=== PATIENT | male | born 1945 | race Two or more races ===

== ENCOUNTER 2016-05-25 12:02 | Inpatient (IN) | payer OTHER ==
[~2016-05-25] VITALS: Ht 160 cm; Wt 82.3 kg
[~2016-05-25 12:02] MED LIST: Atorvastatin Calcium PO; ERGO1CAP23 PO; LABE200T18 PO; Nifedipine PO
[2016-05-26] VITALS (7 sets, daily range): BP systolic 150–199; BP diastolic 66–98
[2016-05-26 04:07] LABS: Basophils # (auto) 0 uL; Basophils % (auto) 0.4 % (0.0-2.0); DEFINITIVE VIEW TRANSMISSION; Eosinophils # (auto) 0.3 uL; Eosinophils % (auto) 2.9 % (0.0-7.0); Hematocrit 22.8 % (41.0-53.0); Hemoglobin 7.5 g/dL (13.5-17.5); Lymphocytes # (auto) 0.8 uL; Lymphocytes % (auto) 8.7 % (10.0-50.0); Mean Corpuscular Hemoglobin 27.3 pg (28.0-32.0); Mean Corpuscular Hgb Conc. 32.8 g/dL (32.0-36.0); Mean Platelet Volume 7.5 fL (7.4-10.4); Monocytes # (auto) 0.6 uL; Monocytes % (auto) 6.1 % (0.0-12.0); Neutrophils # (auto) 7.7 uL; Neutrophils % (auto) 81.9 % (37.0-80.0); Platelet Count (auto) 172 10^3/uL (140-450); Red Cell Distribution Width 17.5 % (11.6-16.0); White Blood Cell 9.4 10^3/uL (4.4-10.8)
[2016-05-26 04:22] LABS: INR 1.14 (0.9-1.15); Partial Thromboplastin Time 28.6 sec (22.64-33.71); Prothrombin Time 11.7 sec (9.37-12.3)
[2016-05-26 04:43] LABS: Albumin 2.8 g/dL (3.4-5.0); BUN/Creatinine Ratio 6.6; Bilirubin, Total 0.7 mg/dL (0.2-1.0); Calcium 7.8 mg/dL (8.5-10.1); Total Protein 6.7 g/dL (6.4-8.2)
[2016-05-26 04:47] LABS: Potassium 5.9 mmol/L (3.5-5.1)
[2016-05-26] MEDS ORDERED: CALCIUM GLUC 4.65 MEQ/10ML 4.65 MEQ in SODIUM CHL 0.9% 50 ML IV ONE (06:30)
[2016-05-26] MEDS ORDERED: DEXTROSE (50%) 50ML SYRG IV ONE (06:30)
[2016-05-26] MEDS ORDERED: SODIUM BICARBONATE 8.4 % INJ 50ML VIAL IV ONE (06:30)
[2016-05-26] MEDS ORDERED: InsuLIN REG 1unit/0.01ml Soln (100units/ml) IV ONE (06:30)
[2016-05-26] MEDS ORDERED: SODIUM POLYSTYRENE SULF 15GM/60ML SUSP PO ONE (06:30)
[2016-05-26] MEDS ORDERED: CALCIUM GLUC 4.65 MEQ/10ML IV ONE (06:47)
[2016-05-26] MEDS ORDERED: LORazepam 0.5 MG TAB PO PRN (08:15)
[2016-05-26] MEDS ORDERED: PROMETHAZINE HCL 25 MG/ML 1ML IV PRN (08:15)
[2016-05-26] MEDS ORDERED: MORPHINE SULF INJ 2 MG/ML SYRINGE 1ML IV PRN ×2 (08:15)
[2016-05-26] MEDS ORDERED: ONDANSETRON HCL 4 MG/2 ML VIAL IV PRN (08:15)
[2016-05-26] MEDS ORDERED: LACTULOSE 20Gm/30ML SOLN PO PRN (08:15)
[2016-05-26] MEDS ORDERED: HYDROcodone-ACET 5/325MG TAB PO PRN (08:15)
[2016-05-26] MEDS ORDERED: DEXTROSE (50%) 50ML SYRG IV PRN (08:15)
[2016-05-26] MEDS ORDERED: NITROGLYCERIN 0.4 MG SL TAB SL PRN (08:15)
[2016-05-26] MEDS ORDERED: TEMAZEPAM 15 MG CAP PO PRN (08:15)
[2016-05-26] MEDS ORDERED: ACETAMINOPHEN 500 MG TAB PO PRN (08:15)
[2016-05-26 10:00] LABS: Urine Bilirubin Negative (Negative); Urine Color Yellow (Yellow); Urine Ketone Negative (Negative); Urine Nitrite Negative (Negative); Urine RBC 9 /hpf (0 - 3); Urine Urobilinogen Normal (Negative); Urine pH 7.5 (5.0-8.0)
[2016-05-26] MEDS ORDERED: FAMOTIDINE 20 MG TAB PO SCH (10:00)
[2016-05-26] MEDS: ENOXAPARIN SOD 30 MG/0.3 ML SYRINGE SC SCH ×2 (10:00→16:05)
[2016-05-26 10:09] LABS: Urine Glucose 1+ mg/dL (Normal)
[2016-05-26 10:10] LABS: Urine Blood 1+ /uL (Negative)
[2016-05-26] MEDS: FUROSEMIDE 40 MG/4 ML VIAL IV SCH (10:39)
[2016-05-26] MEDS: CARVEDILOL 3.125 MG TAB PO SCH ×2 (10:40→22:26)
[2016-05-26] MEDS: FAMOTIDINE 20 MG TAB PO SCH (10:40)
[2016-05-26] MEDS: InsuLIN REG 1unit/0.01ml Soln (100units/ml) SC SCH ×3 (10:55→22:00)
[2016-05-26] MEDS: ACCU-CHEK COMFORT CURVE STRIP VI SCH ×2 (10:56→17:19)
[2016-05-26] MEDS: LABETALOL HCL 5 MG/ML 4ML SYRINGE IV PRN ×3 (11:32→17:20)
[2016-05-26] MEDS ORDERED: MINOXIDIL 10 MG TAB PO ONE (15:30)
[2016-05-26] MEDS ORDERED: NIFEdipine ER 30 MG TAB PO ONE (15:30)
[2016-05-26 19:10] LABS: BUN/Creatinine Ratio 6.5; Calcium 8.3 mg/dL (8.5-10.1); Potassium 5.4 mmol/L (3.5-5.1)
[2016-05-26] MEDS: MINOXIDIL 10 MG TAB PO SCH (22:27)
[2016-05-26] MEDS: LOSARTAN POTASSIUM 50 MG TAB PO SCH (22:27)
[2016-05-27] MEDS: ACCU-CHEK COMFORT CURVE STRIP VI SCH ×5 (01:08→21:58)
[2016-05-27 05:20] VITALS: BP 117/53
[2016-05-27] MEDS: InsuLIN REG 1unit/0.01ml Soln (100units/ml) SC SCH ×4 (05:44→22:00)
[2016-05-27] MEDS ORDERED: ENAL2.5T PO (05:53)
[2016-05-27] MEDS ORDERED: NIFE90TA30 PO (05:53)
[2016-05-27] MEDS ORDERED: LOSA100T27 PO (05:53)
[2016-05-27 06:16] LABS: Basophils # (auto) 0 uL; Basophils % (auto) 0.2 % (0.0-2.0); DEFINITIVE VIEW TRANSMISSION; Eosinophils # (auto) 0.2 uL; Eosinophils % (auto) 2.4 % (0.0-7.0); Hemoglobin 7.2 g/dL (13.5-17.5); Lymphocytes # (auto) 1.2 uL; Lymphocytes % (auto) 14.4 % (10.0-50.0); Mean Corpuscular Hemoglobin 27.1 pg (28.0-32.0); Mean Corpuscular Hgb Conc. 32.5 g/dL (32.0-36.0); Mean Corpuscular Volume 83.3 fL (80.0-100.0); Mean Platelet Volume 8.2 fL (7.4-10.4); Monocytes # (auto) 0.5 uL; Monocytes % (auto) 6.1 % (0.0-12.0); Neutrophils # (auto) 6.2 uL; Neutrophils % (auto) 76.9 % (37.0-80.0); Platelet Count (auto) 176 10^3/uL (140-450); Red Cell Distribution Width 17.6 % (11.6-16.0); White Blood Cell 8.1 10^3/uL (4.4-10.8)
[2016-05-27 06:40] LABS: Albumin 2.6 g/dL (3.4-5.0); Calcium 8.2 mg/dL (8.5-10.1); Potassium 5.3 mmol/L (3.5-5.1)
[2016-05-27 06:48] LABS: BUN/Creatinine Ratio 6.7; Bilirubin, Total 0.5 mg/dL (0.2-1.0)
[2016-05-27 08:30] VITALS: BP 136/68
[2016-05-27] MEDS: FAMOTIDINE 20 MG TAB PO SCH (09:48)
[2016-05-27] MEDS: ENOXAPARIN SOD 30 MG/0.3 ML SYRINGE SC SCH (09:48)
[2016-05-27] MEDS: FUROSEMIDE 40 MG/4 ML VIAL IV SCH (09:48)
[2016-05-27] MEDS: MINOXIDIL 10 MG TAB PO SCH ×2 (09:48→21:58)
[2016-05-27] MEDS: CARVEDILOL 3.125 MG TAB PO SCH ×2 (09:48→21:57)
[2016-05-27] MEDS: NIFEdipine ER 30 MG TAB PO SCH (09:49)
[2016-05-27 12:39] VITALS: BP 134/74
[2016-05-27 13:39] VITALS: BP 147/68
[2016-05-27 17:00] VITALS: BP 117/54
[2016-05-27] MEDS: LOSARTAN POTASSIUM 50 MG TAB PO SCH (21:57)
[2016-05-27 22:00] VITALS: BP 104/48
[2016-05-28] VITALS (12 sets, daily range): BP systolic 111–137; BP diastolic 56–70
[2016-05-28] MEDS: ACCU-CHEK COMFORT CURVE STRIP VI SCH ×4 (06:18→23:43)
[2016-05-28] MEDS: InsuLIN REG 1unit/0.01ml Soln (100units/ml) SC SCH ×4 (06:18→23:21)
[2016-05-28 06:36] LABS: Basophils # (auto) 0 uL; Basophils % (auto) 0.4 % (0.0-2.0); DEFINITIVE VIEW TRANSMISSION; Eosinophils # (auto) 0.3 uL; Eosinophils % (auto) 4.6 % (0.0-7.0); Hematocrit 20.2 % (41.0-53.0); Lymphocytes # (auto) 1.3 uL; Lymphocytes % (auto) 19.7 % (10.0-50.0); Mean Corpuscular Hgb Conc. 33.6 g/dL (32.0-36.0); Mean Corpuscular Volume 83.2 fL (80.0-100.0); Monocytes # (auto) 0.5 uL; Monocytes % (auto) 8.1 % (0.0-12.0); Neutrophils # (auto) 4.3 uL; Neutrophils % (auto) 67.2 % (37.0-80.0); Platelet Count (auto) 150 10^3/uL (140-450); Red Cell Distribution Width 18.3 % (11.6-16.0); White Blood Cell 6.4 10^3/uL (4.4-10.8)
[2016-05-28 06:44] LABS: BUN/Creatinine Ratio 6.3; Potassium 5.2 mmol/L (3.5-5.1)
[2016-05-28 06:45] LABS: Hemoglobin 6.8 g/dL (13.5-17.5)
[2016-05-28 06:47] LABS: INR 1.17 (0.9-1.15)
[2016-05-28 08:25] LABS: Ovalocytes FEW; Platelet Estimate Adequate
[2016-05-28 08:26] LABS: Schistocytes FEW
[2016-05-28] MEDS: MINOXIDIL 10 MG TAB PO SCH ×2 (09:40→23:01)
[2016-05-28] MEDS: FAMOTIDINE 20 MG TAB PO SCH (09:40)
[2016-05-28] MEDS: CARVEDILOL 3.125 MG TAB PO SCH ×2 (09:41→23:01)
[2016-05-28] MEDS: NIFEdipine ER 30 MG TAB PO SCH (09:41)
[2016-05-28] MEDS: FUROSEMIDE 40 MG/4 ML VIAL IV SCH (09:41)
[2016-05-28] MEDS: ENOXAPARIN SOD 30 MG/0.3 ML SYRINGE SC SCH (09:42)
[2016-05-28] MEDS ORDERED: PANTOPRAZOLE SODIUM 40 MG/10 ML VIAL IV ONE (15:30)
[2016-05-28] MEDS: LOSARTAN POTASSIUM 50 MG TAB PO SCH (22:00)
[2016-05-29] VITALS (7 sets, daily range): BP systolic 125–151; BP diastolic 65–79
[2016-05-29 00:46] LABS: Hematocrit 29.1 % (41.0-53.0); Hemoglobin 9.6 g/dL (13.5-17.5)
[2016-05-29 06:15] LABS: Hematocrit 27.3 % (41.0-53.0)
[2016-05-29] MEDS: InsuLIN REG 1unit/0.01ml Soln (100units/ml) SC SCH ×4 (06:34→22:00)
[2016-05-29] MEDS: ACCU-CHEK COMFORT CURVE STRIP VI SCH ×3 (06:34→17:18)
[2016-05-29] MEDS: PANTOPRAZOLE SODIUM 40 MG/10 ML VIAL IV SCH (09:31)
[2016-05-29] MEDS: FUROSEMIDE 40 MG/4 ML VIAL IV SCH (09:31)
[2016-05-29] MEDS: NIFEdipine ER 30 MG TAB PO SCH (09:32)
[2016-05-29] MEDS: MINOXIDIL 10 MG TAB PO SCH ×2 (09:32→23:36)
[2016-05-29] MEDS: CARVEDILOL 3.125 MG TAB PO SCH ×2 (09:32→23:37)
[2016-05-29] MEDS: LOSARTAN POTASSIUM 50 MG TAB PO SCH (22:00)
[2016-05-30] MEDS: ACCU-CHEK COMFORT CURVE STRIP VI SCH ×3 (00:58→12:05)
[2016-05-30 05:05] VITALS: BP 112/51
[2016-05-30 06:17] LABS: Basophils # (auto) 0 uL; Basophils % (auto) 0.3 % (0.0-2.0); Eosinophils # (auto) 0.3 uL; Eosinophils % (auto) 5.4 % (0.0-7.0); Hematocrit 28.3 % (41.0-53.0); Hemoglobin 9.3 g/dL (13.5-17.5); Lymphocytes # (auto) 1.3 uL; Lymphocytes % (auto) 20.1 % (10.0-50.0); Mean Corpuscular Hemoglobin 28.1 pg (28.0-32.0); Mean Corpuscular Hgb Conc. 32.7 g/dL (32.0-36.0); Mean Corpuscular Volume 85.9 fL (80.0-100.0); Mean Platelet Volume 8.4 fL (7.4-10.4); Monocytes # (auto) 0.7 uL; Monocytes % (auto) 10.9 % (0.0-12.0); Neutrophils # (auto) 4.1 uL; Neutrophils % (auto) 63.3 % (37.0-80.0); Platelet Count (auto) 159 10^3/uL (140-450); Red Cell Distribution Width 17.6 % (11.6-16.0); White Blood Cell 6.4 10^3/uL (4.4-10.8)
[2016-05-30 06:57] LABS: Albumin 2.8 g/dL (3.4-5.0); BUN/Creatinine Ratio 7.2; Bilirubin, Total 0.5 mg/dL (0.2-1.0); Calcium 8.7 mg/dL (8.5-10.1); Potassium 5.3 mmol/L (3.5-5.1); Total Protein 6.4 g/dL (6.4-8.2)
[2016-05-30] MEDS: InsuLIN REG 1unit/0.01ml Soln (100units/ml) SC SCH ×2 (07:00→12:29)
[2016-05-30 09:00] VITALS: BP 137/64
[2016-05-30] MEDS: MINOXIDIL 10 MG TAB PO SCH (09:58)
[2016-05-30] MEDS: PANTOPRAZOLE SODIUM 40 MG/10 ML VIAL IV SCH (09:59)
[2016-05-30] MEDS: CARVEDILOL 3.125 MG TAB PO SCH (10:00)
[2016-05-30] MEDS: NIFEdipine ER 30 MG TAB PO SCH (10:01)
[2016-05-30 12:56] VITALS: BP 140/71
[2016-05-30] MEDS ORDERED: LOSA100T27 PO (14:46)
[2016-05-30 15:57] VITALS: BP 137/64
[2016-05-30 17:00] VITALS: BP 135/65
== END 2016-05-30 17:20 | disposition home or self-care (01) | DRG 314 ==
LOC: ER 12:24 → TELE 12:25 → TELE-WESTW 05-26 09:58 → WEST WING 05-30 01:40
PROVIDERS: ADMIT Internal Medicine; ATTEND Internal Medicine Pulmonary Disease
PROC: 30233N1 Transfusion of Nonautologous Red Blood Cells into Peripheral Vein, Percutaneous Approach (ICD-10-PCS; 2016-05-25)
PROC: 5A1D00Z (ICD-10-PCS; principal; 2016-05-27)
DX: T82.41XA Breakdown (mechanical) of vascular dialysis catheter, initial encounter (principal); N18.6 End stage renal disease; J81.1 Chronic pulmonary edema; I13.2 Hypertensive heart and chronic kidney disease with heart failure and with stage 5 chronic kidney disease, or end stage renal disease; E11.22 Type 2 diabetes mellitus with diabetic chronic kidney disease; E87.5 Hyperkalemia; D63.1 Anemia in chronic kidney disease; I50.9 Heart failure, unspecified; Y83.8 Other surgical procedures as the cause of abnormal reaction of the patient, or of later complication, without mention of misadventure at the time of the procedure; Y71.2 Prosthetic and other implants, materials and accessory cardiovascular devices associated with adverse incidents; Z99.2 Dependence on renal dialysis; Z83.3 Family history of diabetes mellitus; Y92.89 Other specified places as the place of occurrence of the external cause; Z90.49 Acquired absence of other specified parts of digestive tract; Z98.890 Other specified postprocedural states
CPT/HCPCS: 36415; 71010; 80048; 80053; 81001; 82962; 83036; 83735; 84132; 84443; 85014; 85018; 85025; 85045; 85610; 85652; 85730; 86141; 86850; 86900; 86901; 86920; 87081; 87340; 87493; 90935; 93005; 93306; 96365; 96375; C9113; J1815; J3490

== ENCOUNTER 2017-05-06 13:35 | Emergency (ER) | payer OTHER ==
[~2017-05-06] VITALS: Ht 162.6 cm; Wt 73.9 kg
[~2017-05-06 13:35] MED LIST changes: +LOSA100T27 PO; +NIFE90TA30 PO
[2017-05-06 13:55] VITALS: BP 155/65
== END 2017-05-06 23:55 | disposition left against medical advice (07) ==
LOC: ER 13:42
DX: R51 Headache (principal); W19.XXXA Unspecified fall, initial encounter; Y93.89 Activity, other specified; Y92.89 Other specified places as the place of occurrence of the external cause; Y99.8 Other external cause status; Z53.21 Procedure and treatment not carried out due to patient leaving prior to being seen by health care provider
CPT/HCPCS: 70450; 93005

== ENCOUNTER 2018-10-15 21:09 | Inpatient (IN) | payer OTHER ==
[~2018-10-15] VITALS: Ht 160 cm; Wt 74.8 kg
[~2018-10-15 21:09] MED LIST changes: +ASP81EC PO; +CALC667T2 PO; +LAMO100T44 PO; +LOSA-49 PO; -LOSA100T27 PO; +METO-517 PO; +NIFE60TA59 PO; +PANT40TA2 PO; +SERT-275 PO
[2018-10-15] MEDS: NICARDIPINE 25MG/250ML BAG KIT 250 ML IV SCH (22:12)
[2018-10-15 22:17] LABS: Basophils # (auto) 0 uL; Basophils % (auto) 0.7 % (0.0-2.0); Eosinophils # (auto) 0.2 uL; Hematocrit 31.1 % (41.0-53.0); Hemoglobin 10.5 g/dL (13.5-17.5); Lymphocytes # (auto) 0.5 uL; Lymphocytes % (auto) 12.3 % (10.0-50.0); Mean Corpuscular Hemoglobin 30.8 pg (28.0-32.0); Mean Corpuscular Hgb Conc. 33.7 g/dL (32.0-36.0); Mean Corpuscular Volume 91.2 fL (80.0-100.0); Monocytes # (auto) 0.3 uL; Neutrophils # (auto) 2.8 uL; Platelet Count (auto) 111 10^3/uL (140-450); Red Blood Cells 3.41 10^6/uL (4.5-5.90); Red Cell Distribution Width 16.6 % (11.8-14.3); White Blood Cell 3.8 10^3/uL (4.4-10.8)
[2018-10-15 22:22] LABS: INR 1.09 (0.9-1.15); Partial Thromboplastin Time 26.7 sec (23.64-32.05); Prothrombin Time 11.7 sec (9.06-12.60)
[2018-10-15 22:26] LABS: Calcium 8.6 mg/dL (8.5-10.1); Chloride 100 mmol/L (98-107); Potassium 4.6 mmol/L (3.5-5.1); Sodium 137 mmol/L (136-145)
[2018-10-15 22:30] LABS: Albumin 3.6 g/dL (3.4-5.0); Anion Gap 10 (5-15); BUN/Creatinine Ratio 5.4; Blood Urea Nitrogen 32 mg/dL (7-18); Carbon Dioxide 27 mmol/L (21-32); GFR African American 12 mL/min; GFR Non-African American 10 mL/min; Glucose 118 mg/dL (74-106); Magnesium 2.1 mg/dL (1.6-2.6)
[2018-10-15 22:35] LABS: Alanine Aminotransferase 41 U/L (16-61); Alkaline Phosphatase 279 U/L (45-117); Aspartate Aminotransferase 50 U/L (15-37); Bilirubin, Total 1.6 mg/dL (0.2-1.0); Total Protein 8.2 g/dL (6.4-8.2)
[2018-10-15] MEDS ORDERED: HYDROcodone-ACET 7.5/325MG TAB PO ONE (23:15)
[2018-10-16] MEDS ORDERED: ONDANSETRON HCL 4 MG/2 ML VIAL IV PRN (00:30)
[2018-10-16] MEDS ORDERED: ACETAMINOPHEN 325 MG TAB PO PRN (00:30)
[2018-10-16] MEDS ORDERED: HYDROcodone-ACET 5/325MG TAB PO PRN (00:30)
[2018-10-16] MEDS ORDERED: DEXTROSE (50%) 50ML SYRG IV PRN (02:30)
[2018-10-16 02:32] LABS: Basophils # (auto) 0.1 uL; Basophils % (auto) 1.5 % (0.0-2.0); Eosinophils # (auto) 0.1 uL; Eosinophils % (auto) 2.9 % (0.0-7.0); Hematocrit 28.8 % (41.0-53.0); Hemoglobin 9.6 g/dL (13.5-17.5); Lymphocytes # (auto) 0.4 uL; Lymphocytes % (auto) 9.1 % (10.0-50.0); Mean Corpuscular Hemoglobin 30.6 pg (28.0-32.0); Mean Corpuscular Hgb Conc. 33.4 g/dL (32.0-36.0); Mean Corpuscular Volume 91.4 fL (80.0-100.0); Monocytes # (auto) 0.4 uL; Monocytes % (auto) 8.8 % (0.0-12.0); Neutrophils # (auto) 3.7 uL; Neutrophils % (auto) 77.7 % (37.0-80.0); Platelet Count (auto) 107 10^3/uL (140-450); Red Blood Cells 3.14 10^6/uL (4.5-5.90); Red Cell Distribution Width 16.8 % (11.8-14.3); White Blood Cell 4.7 10^3/uL (4.4-10.8)
[2018-10-16] MEDS: NICARDIPINE 25MG/250ML BAG KIT 250 ML IV SCH ×3 (03:11→13:23)
[2018-10-16] MEDS ORDERED: PANTOPRAZOLE 40 MG TAB PO SCH (06:00)
[2018-10-16 06:54] LABS: Basophils # (auto) 0 uL; Basophils % (auto) 1.1 % (0.0-2.0); Eosinophils # (auto) 0.2 uL; Hematocrit 27.3 % (41.0-53.0); Hemoglobin 9.1 g/dL (13.5-17.5); Lymphocytes # (auto) 0.6 uL; Lymphocytes % (auto) 15.1 % (10.0-50.0); Mean Corpuscular Hemoglobin 30.8 pg (28.0-32.0); Mean Corpuscular Hgb Conc. 33.5 g/dL (32.0-36.0); Monocytes # (auto) 0.4 uL; Monocytes % (auto) 11.1 % (0.0-12.0); Neutrophils # (auto) 2.7 uL; Neutrophils % (auto) 66.7 % (37.0-80.0); Platelet Count (auto) 101 10^3/uL (140-450); Red Blood Cells 2.97 10^6/uL (4.5-5.90); Red Cell Distribution Width 16.8 % (11.8-14.3)
[2018-10-16 07:03] LABS: Calcium 8.4 mg/dL (8.5-10.1); Potassium 4.5 mmol/L (3.5-5.1)
[2018-10-16 07:05] LABS: BUN/Creatinine Ratio 5.6
[2018-10-16] MEDS: ACCU-CHEK COMFORT CURVE STRIP VI SCH ×3 (07:33→18:07)
[2018-10-16] MEDS: InsuLIN REG 1unit/0.01ml Soln (100units/ml) SC SCH ×3 (07:33→18:07)
[2018-10-16] MEDS ORDERED: LOSARTAN POTASSIUM 50 MG TAB PO SCH (10:00)
[2018-10-16] MEDS ORDERED: NIFEdipine ER 30 MG TAB PO SCH (10:00)
[2018-10-16] MEDS ORDERED: SERTRALINE HCL 50 MG TAB PO SCH (10:00)
[2018-10-16] MEDS ORDERED: LABETALOL HCL 200 MG TAB PO SCH (10:00)
[2018-10-16] MEDS ORDERED: lamoTRIgine 25 MG TAB PO SCH (10:00)
[2018-10-16] MEDS ORDERED: ASPirin-EC 81 mg tab PO SCH (10:00)
[2018-10-16 18:13] VITALS: BP 111/59
[2018-10-16] MEDS ORDERED: ATORVASTATIN 20 MG TAB PO SCH (22:00)
== END 2018-10-16 20:30 | disposition home or self-care (01) | DRG 314 ==
LOC: ER 21:10 → OVERFLOW 10-16 00:27
PROVIDERS: ADMIT Nurse Practitioner Family; ATTEND Internal Medicine
DX: T82.838A Hemorrhage due to vascular prosthetic devices, implants and grafts, initial encounter (principal); N18.6 End stage renal disease; I50.43 Acute on chronic combined systolic (congestive) and diastolic (congestive) heart failure; I13.2 Hypertensive heart and chronic kidney disease with heart failure and with stage 5 chronic kidney disease, or end stage renal disease; I16.9 Hypertensive crisis, unspecified; R64 Cachexia; D63.1 Anemia in chronic kidney disease; D69.6 Thrombocytopenia, unspecified; E11.22 Type 2 diabetes mellitus with diabetic chronic kidney disease; E66.9 Obesity, unspecified; Y83.8 Other surgical procedures as the cause of abnormal reaction of the patient, or of later complication, without mention of misadventure at the time of the procedure; I70.0 Atherosclerosis of aorta; Z68.29 Body mass index [BMI] 29.0-29.9, adult; Z79.899 Other long term (current) drug therapy; Z82.49 Family history of ischemic heart disease and other diseases of the circulatory system; Z83.3 Family history of diabetes mellitus; Z99.2 Dependence on renal dialysis; Z88.6 Allergy status to analgesic agent; Z90.49 Acquired absence of other specified parts of digestive tract; Y92.89 Other specified places as the place of occurrence of the external cause
CPT/HCPCS: 36415; 71045; 80048; 80053; 82962; 83735; 83880; 84484; 85025; 85610; 85730; 86850; 86900; 86901; 93005; 93971; G0378; J1815; J2405

== ENCOUNTER 2020-09-27 16:09 | Inpatient (IN) | payer OTHER ==
[~2020-09-27] VITALS: Ht 157.5 cm; Wt 77.0 kg
[~2020-09-27 16:09] MED LIST changes: -ASP81EC PO; +ASPI-394 PO; +CALC10TA PO; -CALC667T2 PO; -LABE200T18 PO; +LABE200T7 PO; +LOSA-39 PO; -LOSA-49 PO; +NIFE1TAB30 PO; -NIFE60TA59 PO; -NIFE90TA30 PO; +NIFE90TA49 PO; -SERT-275 PO; +SERT25TA14 PO
[2020-09-27] MEDS ORDERED: SODIUM CHLORIDE 0.9% 1,000 ML IVB ONE (17:00)
[2020-09-27] MEDS ORDERED: ONDANSETRON HCL 4 MG/2 ML VIAL IV ONE (17:00)
[2020-09-27 17:29] LABS: Basophils # (auto) 0 10 ^3/uL (0-0.2); Basophils % (auto) 0.6 % (0.0-2.0); Eosinophils # (auto) 0.2 10 ^3/uL (0-0.8); Eosinophils % (auto) 4.2 % (0.0-7.0); Hematocrit 34.6 % (41.0-53.0); Hemoglobin 11.5 g/dL (13.5-17.5); Lymphocytes # (auto) 0.8 10 ^3/uL (0.4-5.4); Lymphocytes % (auto) 15.4 % (10.0-50.0); Mean Corpuscular Hemoglobin 31.5 pg (28.0-32.0); Mean Corpuscular Hgb Conc. 33.3 g/dL (32.0-36.0); Mean Corpuscular Volume 94.6 fL (80.0-100.0); Monocytes # (auto) 0.4 10 ^3/uL (0-1.3); Monocytes % (auto) 7.8 % (0.0-12.0); Neutrophils # (auto) 3.7 10 ^3/uL (1.6-8.6); Nucleated Red Blood Cells % 0.1 %; Platelet Count (auto) 90 10^3/uL (140-450); Red Blood Cells 3.66 10^6/uL (4.5-5.90); Red Cell Distribution Width 14.1 % (11.8-14.3); White Blood Cell 5.1 10^3/uL (4.4-10.8)
[2020-09-27] MEDS ORDERED: CALCIUM GLUC 1,000mg/50ml-NS 50 ML IV ONE ×2 (17:34→17:45)
[2020-09-27 17:41] LABS: Alanine Aminotransferase 44 U/L (16-61); Amylase 56 U/L (25-115); Anion Gap 12 (5-15); Aspartate Aminotransferase 21 U/L (15-37); Blood Urea Nitrogen 65 mg/dL (7-18); Calcium 8.8 mg/dL (8.5-10.1); Carbon Dioxide 23 mmol/L (21-32); Chloride 98 mmol/L (98-107); Glucose 193 mg/dL (74-106); Lipase 84 U/L (73-393); Sodium 133 mmol/L (136-145)
[2020-09-27] MEDS ORDERED: SODIUM BICARBONATE 8.4% INJ 50ML SYRINGE IV ONE (17:45)
[2020-09-27] MEDS ORDERED: DEXTROSE (50%) 50ML SYRG IV ONE (17:45)
[2020-09-27] MEDS ORDERED: ALBUTEROL SULF 2.5 MG/0.5ML(0.5%) NEB SOLN NEB ONE (17:45)
[2020-09-27] MEDS ORDERED: InsuLIN REG 1unit/0.01ml Soln (100units/ml) IV ONE (17:45)
[2020-09-27 17:47] LABS: Alkaline Phosphatase 274 U/L (45-117); BUN/Creatinine Ratio 6.5; Bilirubin, Total 0.8 mg/dL (0.2-1.0); GFR African American 7 mL/min; GFR Non-African American 5 mL/min; Total Protein 8.5 g/dL (6.4-8.2)
[2020-09-27 17:56] LABS: INR 1.03 (0.9-1.15)
[2020-09-27] MEDS ORDERED: SODIUM ZIRCONIUM CYCL 10 GM PAK PO ONE ×2 (18:00→18:15)
[2020-09-27 18:07] LABS: Potassium 8.7 mmol/L (3.5-5.1)
[2020-09-27] MEDS ORDERED: MORPHINE SULF INJ 2 MG/ML SYRINGE 1ML IV PRN ×2 (18:30→21:00)
[2020-09-27] MEDS ORDERED: FUROSEMIDE 20 MG/2 ML VIAL IV ONE (18:30)
[2020-09-27] MEDS ORDERED: DEXTROSE (50%) 50ML SYRG IV PRN (18:30)
[2020-09-27] MEDS ORDERED: ACETAMINOPHEN 500 MG TAB PO PRN (18:30)
[2020-09-27] MEDS ORDERED: NITROGLYCERIN 0.4 MG SL TAB SL PRN (18:30)
[2020-09-27] MEDS ORDERED: ONDANSETRON HCL 4 MG/2 ML VIAL IV PRN (18:30)
[2020-09-27] MEDS ORDERED: LABETALOL HCL 5 MG/ML 4ML SYRINGE IV PRN ×3 (18:45)
[2020-09-27] MEDS ORDERED: ERGOCALCIFEROL 50,000 UNIT(1.25MG) CAP PO SCH (18:45)
[2020-09-27] MEDS ORDERED: LABETALOL HCL 200 MG TAB PO ONE (18:45)
[2020-09-27] MEDS ORDERED: LABETALOL HCL 5 MG/ML 4ML SYRINGE IV ONE (18:45)
[2020-09-27] MEDS ORDERED: SODIUM CHL 0.9% 1000 ML BAG XX ONE (21:00)
[2020-09-27] MEDS: HYDROcodone-ACET 5/325MG TAB PO PRN (21:22)
[2020-09-27] MEDS: ACCU-CHEK COMFORT CURVE STRIP VI SCH (22:00)
[2020-09-27] MEDS: InsuLIN REG 1unit/0.01ml Soln (100units/ml) SC SCH (22:00)
[2020-09-27] MEDS ORDERED: FAMOTIDINE (10MG/ML) 2ML VL IV SCH (22:00)
[2020-09-27] MEDS: ATORVASTATIN 20 MG TAB PO SCH (22:51)
[2020-09-27] MEDS: lamoTRIgine 100 MG TAB PO SCH (22:51)
[2020-09-27] MEDS: LABETALOL HCL 200 MG TAB PO SCH (22:52)
[2020-09-27] MEDS: NIFEdipine ER 30 MG TAB PO SCH (22:53)
[2020-09-28 02:36] VITALS: BP 152/65
[2020-09-28 05:00] VITALS: BP 123/57
[2020-09-28 05:08] LABS: Basophils # (auto) 0 10 ^3/uL (0-0.2); Basophils % (auto) 0.3 % (0.0-2.0); Eosinophils # (auto) 0.1 10 ^3/uL (0-0.8); Eosinophils % (auto) 2.3 % (0.0-7.0); Hematocrit 30.3 % (41.0-53.0); Hemoglobin 10.3 g/dL (13.5-17.5); Lymphocytes # (auto) 0.6 10 ^3/uL (0.4-5.4); Lymphocytes % (auto) 11.9 % (10.0-50.0); Mean Corpuscular Hemoglobin 32.1 pg (28.0-32.0); Mean Corpuscular Hgb Conc. 33.9 g/dL (32.0-36.0); Mean Corpuscular Volume 94.7 fL (80.0-100.0); Monocytes # (auto) 0.4 10 ^3/uL (0-1.3); Monocytes % (auto) 7.5 % (0.0-12.0); Neutrophils # (auto) 4.2 10 ^3/uL (1.6-8.6); Nucleated Red Blood Cells % 0.1 %; Platelet Count (auto) 79 10^3/uL (140-450); Red Cell Distribution Width 13.8 % (11.8-14.3); White Blood Cell 5.3 10^3/uL (4.4-10.8)
[2020-09-28 05:40] LABS: Potassium 5.4 mmol/L (3.5-5.1)
[2020-09-28 05:50] LABS: Albumin 3.4 g/dL (3.4-5.0); BUN/Creatinine Ratio 4.8; Bilirubin, Total 0.7 mg/dL (0.2-1.0); Calcium 8.1 mg/dL (8.5-10.1); Total Protein 7.2 g/dL (6.4-8.2)
[2020-09-28] MEDS: InsuLIN REG 1unit/0.01ml Soln (100units/ml) SC SCH ×4 (06:50→21:48)
[2020-09-28] MEDS: ACCU-CHEK COMFORT CURVE STRIP VI SCH ×4 (06:50→21:48)
[2020-09-28 08:00] VITALS: BP 106/61
[2020-09-28] MEDS: CALCIUM ACETATE 667 MG CAP PO SCH ×3 (08:21→18:05)
[2020-09-28] MEDS: METOCLOPRAMIDE HCL 10 MG TAB PO SCH ×3 (08:21→18:06)
[2020-09-28] MEDS: lamoTRIgine 100 MG TAB PO SCH ×2 (08:22→21:47)
[2020-09-28] MEDS: SERTRALINE HCL 50 MG TAB PO SCH (08:22)
[2020-09-28] MEDS: LABETALOL HCL 200 MG TAB PO SCH ×2 (08:23→21:50)
[2020-09-28] MEDS: HYDROcodone-ACET 5/325MG TAB PO PRN (09:15)
[2020-09-28] MEDS ORDERED: PANTOPRAZOLE 40 MG/10 ML VIAL INJ IV ONE (10:30)
[2020-09-28] MEDS ORDERED: KETOROLAC TROMETH 30 MG/ML 1ML VIAL IV ONE (10:45)
[2020-09-28 12:00] VITALS: BP 95/49
[2020-09-28 12:24] LABS: Hepatitis A Ab IgM Negative; Hepatitis B Core IgM Negative; Hepatitis B Surface Antigen Negative (Negative); Hepatitis C Antibody Negative (Negative)
[2020-09-28] MEDS ORDERED: SODIUM BICARBONATE 8.4% INJ 50ML SYRINGE IV ONE (13:27)
[2020-09-28] MEDS ORDERED: DEXTROSE (50%) 50ML SYRG IV ONE (13:27)
[2020-09-28 21:44] VITALS: BP 107/51
[2020-09-28] MEDS: ATORVASTATIN 20 MG TAB PO SCH (21:48)
[2020-09-28] MEDS: NIFEdipine ER 30 MG TAB PO SCH (22:00)
[2020-09-29 05:02] VITALS: BP 124/55
[2020-09-29 06:12] LABS: Basophils # (auto) 0 10 ^3/uL (0-0.2); Basophils % (auto) 0.3 % (0.0-2.0); Eosinophils # (auto) 0.1 10 ^3/uL (0-0.8); Eosinophils % (auto) 1.5 % (0.0-7.0); Hematocrit 33.1 % (41.0-53.0); Hemoglobin 11.1 g/dL (13.5-17.5); Lymphocytes # (auto) 0.8 10 ^3/uL (0.4-5.4); Lymphocytes % (auto) 12.8 % (10.0-50.0); Mean Corpuscular Hemoglobin 32.1 pg (28.0-32.0); Mean Corpuscular Hgb Conc. 33.5 g/dL (32.0-36.0); Mean Corpuscular Volume 95.8 fL (80.0-100.0); Monocytes # (auto) 0.8 10 ^3/uL (0-1.3); Monocytes % (auto) 13.1 % (0.0-12.0); Neutrophils # (auto) 4.4 10 ^3/uL (1.6-8.6); Neutrophils % (auto) 72.3 % (37.0-80.0); Nucleated Red Blood Cells % 0.1 %; Platelet Count (auto) 75 10^3/uL (140-450); Red Blood Cells 3.46 10^6/uL (4.5-5.90)
[2020-09-29 06:26] LABS: BUN/Creatinine Ratio 6.7; Calcium 8.4 mg/dL (8.5-10.1)
[2020-09-29 06:30] LABS: Potassium 5.8 mmol/L (3.5-5.1)
[2020-09-29] MEDS: ACCU-CHEK COMFORT CURVE STRIP VI SCH ×4 (06:30→21:57)
[2020-09-29] MEDS: InsuLIN REG 1unit/0.01ml Soln (100units/ml) SC SCH ×4 (06:32→22:00)
[2020-09-29] MEDS ORDERED: SODIUM ZIRCONIUM CYCL 10 GM PAK PO ONE (07:15)
[2020-09-29 08:00] VITALS: BP 120/84
[2020-09-29] MEDS: METOCLOPRAMIDE HCL 10 MG TAB PO SCH ×3 (08:00→18:00)
[2020-09-29] MEDS: CALCIUM ACETATE 667 MG CAP PO SCH ×3 (08:00→18:00)
[2020-09-29 08:51] VITALS: BP 115/47
[2020-09-29] MEDS ORDERED: PANTOPRAZOLE 40 MG/10 ML VIAL INJ IV SCH (10:00)
[2020-09-29] MEDS: SERTRALINE HCL 50 MG TAB PO SCH (10:00)
[2020-09-29] MEDS: lamoTRIgine 100 MG TAB PO SCH ×2 (10:00→21:57)
[2020-09-29] MEDS: LABETALOL HCL 200 MG TAB PO SCH ×2 (11:50→22:01)
[2020-09-29 13:00] VITALS: BP 118/47
[2020-09-29 17:00] VITALS: BP 151/74
[2020-09-29] MEDS ORDERED: EPOETIN ALFA-EPBX 10,000 UNIT/1ML VIAL SC ONE (21:00)
[2020-09-29] MEDS: ATORVASTATIN 20 MG TAB PO SCH (21:57)
[2020-09-29 22:00] VITALS: BP 158/73
[2020-09-29] MEDS: NIFEdipine ER 30 MG TAB PO SCH (23:08)
[2020-09-30 05:00] VITALS: BP 142/59
[2020-09-30] MEDS: InsuLIN REG 1unit/0.01ml Soln (100units/ml) SC SCH ×2 (06:21→11:30)
[2020-09-30] MEDS: ACCU-CHEK COMFORT CURVE STRIP VI SCH ×2 (06:22→11:34)
[2020-09-30 07:27] LABS: Calcium 7.9 mg/dL (8.5-10.1); Potassium 5.1 mmol/L (3.5-5.1)
[2020-09-30 07:29] LABS: BUN/Creatinine Ratio 6.8
[2020-09-30 09:00] VITALS: BP 121/60
[2020-09-30] MEDS: SERTRALINE HCL 50 MG TAB PO SCH (09:28)
[2020-09-30] MEDS: CALCIUM ACETATE 667 MG CAP PO SCH ×2 (09:28→12:32)
[2020-09-30] MEDS: LABETALOL HCL 200 MG TAB PO SCH (09:29)
[2020-09-30] MEDS: METOCLOPRAMIDE HCL 10 MG TAB PO SCH ×2 (09:30→12:32)
[2020-09-30] MEDS: lamoTRIgine 100 MG TAB PO SCH (09:30)
[2020-09-30] MEDS ORDERED: PANTOPRAZOLE 40 MG TAB PO SCH (10:00)
[2020-09-30 13:58] VITALS: BP 121/60
== END 2020-09-30 15:15 | disposition home or self-care (01) | DRG 73 ==
LOC: ER 16:09 → TELE 18:16 → CENTRAL 09-28 02:04 → TELE-CENTR 09-28 02:07
PROVIDERS: ADMIT Internal Medicine; ATTEND Internal Medicine
PROC: 5A1D70Z Performance of Urinary Filtration, Intermittent, Less than 6 Hours Per Day (ICD-10-PCS; principal; 2020-09-27)
PROC: 5A1D70Z Performance of Urinary Filtration, Intermittent, Less than 6 Hours Per Day (ICD-10-PCS; 2020-09-29)
DX: E11.43 Type 2 diabetes mellitus with diabetic autonomic (poly)neuropathy (principal); N18.6 End stage renal disease; J96.00 Acute respiratory failure, unspecified whether with hypoxia or hypercapnia; I50.41 Acute combined systolic (congestive) and diastolic (congestive) heart failure; I13.2 Hypertensive heart and chronic kidney disease with heart failure and with stage 5 chronic kidney disease, or end stage renal disease; E87.5 Hyperkalemia; K70.30 Alcoholic cirrhosis of liver without ascites; Z20.822 Contact with and (suspected) exposure to COVID-19; K31.84 Gastroparesis; D69.6 Thrombocytopenia, unspecified; E66.9 Obesity, unspecified; I16.0 Hypertensive urgency; H40.9 Unspecified glaucoma; D63.1 Anemia in chronic kidney disease; F10.10 Alcohol abuse, uncomplicated; E11.22 Type 2 diabetes mellitus with diabetic chronic kidney disease; E78.5 Hyperlipidemia, unspecified; H54.62 Unqualified visual loss, left eye, normal vision right eye; Z79.4 Long term (current) use of insulin; Z91.15 Patient's noncompliance with renal dialysis; Z99.2 Dependence on renal dialysis; Z82.49 Family history of ischemic heart disease and other diseases of the circulatory system; Z83.3 Family history of diabetes mellitus; Z90.49 Acquired absence of other specified parts of digestive tract; Z88.6 Allergy status to analgesic agent; Z68.31 Body mass index [BMI] 31.0-31.9, adult
CPT/HCPCS: 36415; 71045; 74176; 80048; 80053; 80074; 82150; 82962; 83036; 83690; 83735; 84132; 84484; 85025; 85610; 85730; 87081; 87426; 90935; 93005; 94640; 96365; 96375; 99291; C9113; G0378; J1642; J1815; J1885; J2405; J3490

== ENCOUNTER 2021-04-18 10:28 | Inpatient (IN) | payer OTHER ==
[~2021-04-18] VITALS: Ht 162.6 cm; Wt 75.3 kg
[2021-04-18] MEDS ORDERED: ACETAMINOPHEN 325 MG TAB PO ONE (11:00)
[2021-04-18] MEDS ORDERED: methylPREDNISolone SOD SUCC 125 MG/2 ML VL IV ONE (11:00)
[2021-04-18 11:47] LABS: Basophils # (auto) 0 10 ^3/uL (0-0.2); Basophils % (auto) 0.2 % (0.0-2.0); Eosinophils # (auto) 0 10 ^3/uL (0-0.8); Eosinophils % (auto) 0.1 % (0.0-7.0); Hematocrit 29.6 % (41.0-53.0); Lymphocytes # (auto) 0.7 10 ^3/uL (0.4-5.4); Lymphocytes % (auto) 4.9 % (10.0-50.0); Mean Corpuscular Hemoglobin 31.1 pg (28.0-32.0); Mean Corpuscular Hgb Conc. 33.8 g/dL (32.0-36.0); Mean Corpuscular Volume 92.2 fL (80.0-100.0); Monocytes # (auto) 1.2 10 ^3/uL (0-1.3); Monocytes % (auto) 8.9 % (0.0-12.0); Neutrophils # (auto) 11.3 10 ^3/uL (1.6-8.6); Neutrophils % (auto) 85.9 % (37.0-80.0); Red Blood Cells 3.21 10^6/uL (4.5-5.90); Red Cell Distribution Width 13.1 % (11.8-14.3); White Blood Cell 13.2 10^3/uL (4.4-10.8)
[2021-04-18 12:28] LABS: Albumin 2.7 g/dL (3.4-5.0); Calcium 8.4 mg/dL (8.5-10.1)
[2021-04-18 12:31] LABS: BUN/Creatinine Ratio 6.4; Total Protein 7.7 g/dL (6.4-8.2)
[2021-04-18] MEDS ORDERED: levoFLOXacin 250MG 50 ML IV ONE (15:15)
[2021-04-18] MEDS ORDERED: VANCOMYCIN 1GM/250ML 250 ML IV ONE (17:00)
[2021-04-18] MEDS ORDERED: MORPHINE SULFATE INJECTION 2 MG/ML SYRG IV PRN (18:00)
[2021-04-18] MEDS ORDERED: NITROGLYCERIN 0.4 MG SL TAB SL PRN (18:00)
[2021-04-18] MEDS ORDERED: SODIUM CHLORIDE 0.9% 1,000 ML IV SCH (18:00)
[2021-04-18] MEDS ORDERED: DEXTROSE (50%) 50ML SYRG IV PRN (18:00)
[2021-04-18] MEDS ORDERED: ACETAMINOPHEN 500 MG TAB PO PRN (18:00)
[2021-04-18] MEDS ORDERED: LACTULOSE 20Gm/30ML SOLN PO PRN ×2 (18:00)
[2021-04-18] MEDS ORDERED: cefTRIAXone 1GM/50ML D5W 50 ML IV ONE (18:00)
[2021-04-18] MEDS ORDERED: ENOXAPARIN SOD 40 MG/0.4 ML SYRINGE SC SCH (18:30)
[2021-04-18] MEDS ORDERED: CLINDAMYCIN 900MG IV 50 ML IV ONE (20:00)
[2021-04-18 22:00] VITALS: BP 184/85
[2021-04-18] MEDS: ATORVASTATIN 20 MG TAB PO SCH (22:13)
[2021-04-18] MEDS: ACCU-CHEK COMFORT CURVE STRIP VI SCH (22:14)
[2021-04-18] MEDS: METOPROLOL TARTRATE 25 MG TAB PO SCH (22:28)
[2021-04-18] MEDS: InsuLIN REG 1unit/0.01ml Soln (100units/ml) SC SCH (22:41)
[2021-04-18] MEDS ORDERED: CALC667C PO (23:25)
[2021-04-18] MEDS ORDERED: AMLO-496 PO (23:25)
[2021-04-18] MEDS ORDERED: CARV12.544 PO (23:25)
[2021-04-18] MEDS ORDERED: LISI40TA11 PO (23:25)
[2021-04-18] MEDS ORDERED: HYDR25TA5 PO (23:25)
[2021-04-18 23:57] VITALS: BP 184/85
[2021-04-19 05:00] VITALS: BP 148/74
[2021-04-19] MEDS ORDERED: CLINDAMYCIN 600MG IV 50 ML IV SCH (06:00)
[2021-04-19] MEDS: InsuLIN REG 1unit/0.01ml Soln (100units/ml) SC SCH ×4 (06:42→22:58)
[2021-04-19] MEDS: ACCU-CHEK COMFORT CURVE STRIP VI SCH ×4 (06:43→22:00)
[2021-04-19 06:57] LABS: Basophils # (auto) 0 10 ^3/uL (0-0.2); Basophils % (auto) 0.1 % (0.0-2.0); Eosinophils # (auto) 0 10 ^3/uL (0-0.8); Hematocrit 30.6 % (41.0-53.0); Hemoglobin 10.4 g/dL (13.5-17.5); Lymphocytes # (auto) 0.5 10 ^3/uL (0.4-5.4); Mean Corpuscular Hemoglobin 31.5 pg (28.0-32.0); Mean Corpuscular Hgb Conc. 33.9 g/dL (32.0-36.0); Mean Corpuscular Volume 92.8 fL (80.0-100.0); Monocytes # (auto) 0.9 10 ^3/uL (0-1.3); Monocytes % (auto) 5.7 % (0.0-12.0); Neutrophils # (auto) 15.2 10 ^3/uL (1.6-8.6); Neutrophils % (auto) 91.2 % (37.0-80.0); Red Cell Distribution Width 13.4 % (11.8-14.3); White Blood Cell 16.7 10^3/uL (4.4-10.8)
[2021-04-19 07:39] LABS: Albumin 2.6 g/dL (3.4-5.0); BUN/Creatinine Ratio 7.4; Bilirubin, Total 1.1 mg/dL (0.2-1.0); Calcium 8.4 mg/dL (8.5-10.1); Total Protein 7.1 g/dL (6.4-8.2)
[2021-04-19 08:53] VITALS: BP 157/74
[2021-04-19 08:53] LABS: Potassium 5.9 mmol/L (3.5-5.1)
[2021-04-19] MEDS: METOPROLOL TARTRATE 25 MG TAB PO SCH ×2 (09:45→10:00)
[2021-04-19] MEDS ORDERED: NITROGLYCERIN 0.2MG/HR TOPICAL PATCH TD SCH (10:00)
[2021-04-19] MEDS ORDERED: ENALAPRIL MALEATE 10 MG TAB PO SCH (10:00)
[2021-04-19 13:00] VITALS: BP 152/84
[2021-04-19] MEDS ORDERED: LABETALOL HCL 5 MG/ML 4ML SYRINGE IV PRN (13:30)
[2021-04-19] MEDS ORDERED: VANCOMYCIN PER PHARMACY 0 MG IV SCH (13:30)
[2021-04-19] MEDS ORDERED: VANCOMYCIN 1GM/250ML 250 ML IV ONE (14:00)
[2021-04-19] MEDS: LACTULOSE 20Gm/30ML SOLN PO SCH ×2 (14:45→18:00)
[2021-04-19] MEDS ORDERED: SODIUM BICARBONATE 8.4 % INJ 50ML VIAL IV ONE (15:15)
[2021-04-19 17:00] VITALS: BP 165/76
[2021-04-19] MEDS: SEVELAMER 800 MG TAB PO SCH (18:00)
[2021-04-19 22:00] VITALS: BP 127/59
[2021-04-19] MEDS: ENOXAPARIN SOD 30 MG/0.3 ML SYRINGE SC SCH (22:58)
[2021-04-19] MEDS: CARVEDILOL 12.5 MG TAB PO SCH (22:59)
[2021-04-19] MEDS: cefTRIAXone 1GM/50ML D5W 50 ML IV SCH (22:59)
[2021-04-19] MEDS: ATORVASTATIN 20 MG TAB PO SCH (22:59)
[2021-04-20 05:00] VITALS: BP 136/64
[2021-04-20 06:10] LABS: Basophils # (auto) 0 10 ^3/uL (0-0.2); Basophils % (auto) 0.1 % (0.0-2.0); Eosinophils # (auto) 0 10 ^3/uL (0-0.8); Eosinophils % (auto) 0.1 % (0.0-7.0); Hematocrit 28.5 % (41.0-53.0); Hemoglobin 9.6 g/dL (13.5-17.5); Lymphocytes # (auto) 0.9 10 ^3/uL (0.4-5.4); Lymphocytes % (auto) 6.3 % (10.0-50.0); Mean Corpuscular Hemoglobin 31.5 pg (28.0-32.0); Mean Corpuscular Hgb Conc. 33.8 g/dL (32.0-36.0); Mean Corpuscular Volume 93.1 fL (80.0-100.0); Monocytes # (auto) 0.9 10 ^3/uL (0-1.3); Monocytes % (auto) 6.7 % (0.0-12.0); Neutrophils # (auto) 11.8 10 ^3/uL (1.6-8.6); Neutrophils % (auto) 86.8 % (37.0-80.0); Red Blood Cells 3.06 10^6/uL (4.5-5.90); Red Cell Distribution Width 13.3 % (11.8-14.3); White Blood Cell 13.6 10^3/uL (4.4-10.8)
[2021-04-20 06:48] LABS: BUN/Creatinine Ratio 9.2; Calcium 7.7 mg/dL (8.5-10.1)
[2021-04-20] MEDS: InsuLIN REG 1unit/0.01ml Soln (100units/ml) SC SCH ×4 (06:57→22:50)
[2021-04-20] MEDS: ACCU-CHEK COMFORT CURVE STRIP VI SCH ×4 (06:57→22:45)
[2021-04-20] MEDS ORDERED: SODIUM CHL 0.9% 1000 ML BAG XX ONE (07:00)
[2021-04-20] MEDS: SEVELAMER 800 MG TAB PO SCH ×3 (08:00→18:00)
[2021-04-20 08:40] LABS: Potassium 5.8 mmol/L (3.5-5.1)
[2021-04-20 09:00] VITALS: BP 132/67
[2021-04-20] MEDS: CARVEDILOL 12.5 MG TAB PO SCH ×2 (10:00→22:47)
[2021-04-20] MEDS: amLODIPine BESYLATE 5 MG TAB PO SCH (10:00)
[2021-04-20 11:35] LABS: INR 1.16 (0.9-1.15); Partial Thromboplastin Time 30.1 sec (23.6-33.0)
[2021-04-20] MEDS: MORPHINE SULFATE INJECTION 2 MG/ML SYRG IV PRN (12:40)
[2021-04-20 13:00] VITALS: BP 133/60
[2021-04-20 14:42] LABS: Albumin 2.7 g/dL (3.4-5.0); Calcium 8.1 mg/dL (8.5-10.1); Potassium 4.6 mmol/L (3.5-5.1)
[2021-04-20 14:45] LABS: Bilirubin, Total 0.7 mg/dL (0.2-1.0); Total Protein 6.9 g/dL (6.4-8.2)
[2021-04-20] MEDS ORDERED: LIDOCAINE 2%HCL (LOCAL ANESTH.) INJ 20ML MDV ONE (15:30)
[2021-04-20] MEDS ORDERED: IOHEXOL 350 MG/ML 100ML IJ ONE (15:30)
[2021-04-20] MEDS ORDERED: MIDAZOLAM HCL 2MG/2ML 2ml VIAL (1mg/ml) ONE (15:35)
[2021-04-20] MEDS ORDERED: SODIUM CHL 0.9% 50 ML ONE (15:35)
[2021-04-20] MEDS ORDERED: fentaNYL CITRATE 100 MCG/2 ML VL ONE (15:35)
[2021-04-20] MEDS ORDERED: ANGIOMAX 250 MG VIAL IV ONE (15:35)
[2021-04-20] MEDS ORDERED: NITROGLYCERIN 0.4MG/DOSE SPRAY 4.9GM ONE (15:50)
[2021-04-20] MEDS ORDERED: CLOPIDOGREL 300 MG TAB ONE (16:15)
[2021-04-20] MEDS ORDERED: EPOETIN ALFA-EPBX 4,000 UNIT/ML VIAL SC ONE (21:00)
[2021-04-20] MEDS ORDERED: VANCOMYCIN 500 MG in D5W 5% 100 ML IV ONE (21:00)
[2021-04-20 22:00] VITALS: BP 150/55
[2021-04-20] MEDS: ENOXAPARIN SOD 30 MG/0.3 ML SYRINGE SC SCH (22:46)
[2021-04-20] MEDS: ATORVASTATIN 20 MG TAB PO SCH (22:46)
[2021-04-20] MEDS: SODIUM CHLOR 0.9% PF (SALINE LOCK) 10ML VIAL/SYR IV SCH (22:47)
[2021-04-20] MEDS: traMADol HCL 50 MG TAB PO PRN (22:47)
[2021-04-20] MEDS: cefTRIAXone 1GM/50ML D5W 50 ML IV SCH (22:48)
[2021-04-21] MEDS: ONDANSETRON HCL 4 MG/2 ML VIAL IV PRN ×2 (00:42→11:17)
[2021-04-21 05:00] VITALS: BP 136/57
[2021-04-21] MEDS: SODIUM CHLOR 0.9% PF (SALINE LOCK) 10ML VIAL/SYR IV SCH ×3 (06:38→21:41)
[2021-04-21] MEDS: InsuLIN REG 1unit/0.01ml Soln (100units/ml) SC SCH ×4 (06:42→21:56)
[2021-04-21] MEDS: ACCU-CHEK COMFORT CURVE STRIP VI SCH ×4 (06:42→21:41)
[2021-04-21 09:00] VITALS: BP 129/56
[2021-04-21] MEDS: SEVELAMER 800 MG TAB PO SCH ×3 (09:39→17:16)
[2021-04-21] MEDS: CARVEDILOL 12.5 MG TAB PO SCH ×2 (09:41→21:57)
[2021-04-21] MEDS: amLODIPine BESYLATE 5 MG TAB PO SCH (09:42)
[2021-04-21] MEDS: ASPirin-EC 81 mg tab PO SCH (10:36)
[2021-04-21] MEDS: CLOPIDOGREL BISULFATE 75 MG TAB PO SCH (10:37)
[2021-04-21 17:00] VITALS: BP 137/63
[2021-04-21] MEDS: cefTRIAXone 1GM/50ML D5W 50 ML IV SCH (21:55)
[2021-04-21 22:00] VITALS: BP 125/56
[2021-04-21] MEDS: ENOXAPARIN SOD 30 MG/0.3 ML SYRINGE SC SCH (22:23)
[2021-04-21] MEDS: ATORVASTATIN 20 MG TAB PO SCH (22:23)
[2021-04-22] MEDS: MORPHINE SULFATE INJECTION 2 MG/ML SYRG IV PRN (04:50)
[2021-04-22] MEDS: ONDANSETRON HCL 4 MG/2 ML VIAL IV PRN (04:50)
[2021-04-22 05:00] VITALS: BP 143/68
[2021-04-22 06:27] LABS: Basophils # (auto) 0 10 ^3/uL (0-0.2); Basophils % (auto) 0.1 % (0.0-2.0); Eosinophils # (auto) 0.1 10 ^3/uL (0-0.8); Eosinophils % (auto) 0.4 % (0.0-7.0); Hematocrit 26.8 % (41.0-53.0); Hemoglobin 9.1 g/dL (13.5-17.5); Lymphocytes # (auto) 0.7 10 ^3/uL (0.4-5.4); Lymphocytes % (auto) 5.2 % (10.0-50.0); Mean Corpuscular Hemoglobin 31.1 pg (28.0-32.0); Mean Corpuscular Hgb Conc. 33.8 g/dL (32.0-36.0); Monocytes % (auto) 7.2 % (0.0-12.0); Neutrophils # (auto) 12.3 10 ^3/uL (1.6-8.6); Neutrophils % (auto) 87.1 % (37.0-80.0); Nucleated Red Blood Cells % 0.1 %; Red Blood Cells 2.91 10^6/uL (4.5-5.90); Red Cell Distribution Width 13.3 % (11.8-14.3); White Blood Cell 14.2 10^3/uL (4.4-10.8)
[2021-04-22] MEDS: SODIUM CHLOR 0.9% PF (SALINE LOCK) 10ML VIAL/SYR IV SCH ×3 (06:34→21:41)
[2021-04-22] MEDS: ACCU-CHEK COMFORT CURVE STRIP VI SCH ×4 (06:34→21:49)
[2021-04-22 06:38] LABS: Albumin 2.4 g/dL (3.4-5.0)
[2021-04-22 06:46] LABS: BUN/Creatinine Ratio 8.6; Bilirubin, Total 0.6 mg/dL (0.2-1.0); Calcium 8.1 mg/dL (8.5-10.1); Total Protein 6.6 g/dL (6.4-8.2)
[2021-04-22] MEDS: InsuLIN REG 1unit/0.01ml Soln (100units/ml) SC SCH ×4 (06:58→21:51)
[2021-04-22] MEDS ORDERED: SODIUM CHL 0.9% 1000 ML BAG XX ONE (07:00)
[2021-04-22 08:12] LABS: Potassium 5.7 mmol/L (3.5-5.1)
[2021-04-22 09:00] VITALS: BP 117/66
[2021-04-22] MEDS: CARVEDILOL 12.5 MG TAB PO SCH ×2 (10:02→23:00)
[2021-04-22] MEDS: amLODIPine BESYLATE 5 MG TAB PO SCH (10:03)
[2021-04-22] MEDS: CLOPIDOGREL BISULFATE 75 MG TAB PO SCH (10:03)
[2021-04-22] MEDS: ASPirin-EC 81 mg tab PO SCH (10:03)
[2021-04-22] MEDS: SEVELAMER 800 MG TAB PO SCH ×3 (10:04→17:13)
[2021-04-22] MEDS ORDERED: ZOLPIDEM TARTRATE 5 MG TAB PO PRN (11:30)
[2021-04-22 14:20] LABS: BUN/Creatinine Ratio 7.7; Calcium 7.8 mg/dL (8.5-10.1); Potassium 4.8 mmol/L (3.5-5.1)
[2021-04-22 15:22] LABS: Hepatitis A Ab IgM Negative; Hepatitis B Core IgM Negative; Hepatitis C Antibody Negative (Negative)
[2021-04-22] MEDS ORDERED: VANCOMYCIN 1GM/250ML 250 ML IV ONE (16:00)
[2021-04-22 17:00] VITALS: BP 137/55
[2021-04-22] MEDS: ENOXAPARIN SOD 30 MG/0.3 ML SYRINGE SC SCH (21:44)
[2021-04-22] MEDS: ATORVASTATIN 20 MG TAB PO SCH (21:44)
[2021-04-22 22:00] VITALS: BP 122/58
[2021-04-23 05:00] VITALS: BP 134/58
[2021-04-23] MEDS: SODIUM CHLOR 0.9% PF (SALINE LOCK) 10ML VIAL/SYR IV SCH ×3 (06:16→22:00)
[2021-04-23] MEDS: InsuLIN REG 1unit/0.01ml Soln (100units/ml) SC SCH ×4 (06:21→22:53)
[2021-04-23 06:22] LABS: Calcium 7.8 mg/dL (8.5-10.1)
[2021-04-23 06:25] LABS: BUN/Creatinine Ratio 7.2
[2021-04-23] MEDS: ACCU-CHEK COMFORT CURVE STRIP VI SCH ×4 (06:26→22:00)
[2021-04-23] MEDS: SEVELAMER 800 MG TAB PO SCH ×3 (08:00→17:56)
[2021-04-23 08:30] VITALS: BP 141/58
[2021-04-23] MEDS: CLOPIDOGREL BISULFATE 75 MG TAB PO SCH (10:00)
[2021-04-23] MEDS: ASPirin-EC 81 mg tab PO SCH (10:00)
[2021-04-23] MEDS: ONDANSETRON HCL 4 MG/2 ML VIAL IV PRN (10:52)
[2021-04-23] MEDS: CARVEDILOL 12.5 MG TAB PO SCH ×2 (10:59→22:00)
[2021-04-23] MEDS: amLODIPine BESYLATE 5 MG TAB PO SCH (10:59)
[2021-04-23] MEDS ORDERED: ceFAZolin 1GM VL ONE (12:15)
[2021-04-23] MEDS ORDERED: ceFAZolin 1GM/50ML 100 ML IV ONE (12:41)
[2021-04-23 13:00] VITALS: BP 149/61
[2021-04-23] MEDS ORDERED: fentaNYL CITRATE 100 MCG/2 ML VL ONE (13:07)
[2021-04-23] MEDS ORDERED: MIDAZOLAM HCL 2MG/2ML 2ml VIAL (1mg/ml) ONE (13:07)
[2021-04-23] MEDS ORDERED: PROPOFOL 10 MG/ML 20 ML IV ONE (13:35)
[2021-04-23] MEDS ORDERED: DexAMETHasone SOD PHOS 10MG/1ML VIAL INJ ONE (13:35)
[2021-04-23] MEDS ORDERED: HYDROmorphone HCL 2 MG/ML VL IV PRN (14:15)
[2021-04-23] MEDS ORDERED: ePHEDrine SULFATE 50 MG/ML AMP IV PRN (14:15)
[2021-04-23] MEDS ORDERED: ONDANSETRON HCL 4 MG/2 ML VIAL IV PRN (14:15)
[2021-04-23] MEDS ORDERED: LABETALOL HCL 5 MG/ML 4ML SYRINGE IV PRN (14:15)
[2021-04-23] MEDS ORDERED: MIDAZOLAM HCL 2MG/2ML 2ml VIAL (1mg/ml) IV PRN (14:15)
[2021-04-23] MEDS ORDERED: MORPHINE SULFATE INJECTION 2 MG/ML SYRG IV PRN (14:15)
[2021-04-23] MEDS ORDERED: CLOP75TA28 PO (14:23)
[2021-04-23] MEDS ORDERED: ATOR40TA52 PO (14:23)
[2021-04-23] MEDS ORDERED: ASPI1TAB20 PO (14:23)
[2021-04-23 16:30] VITALS: BP 115/58
[2021-04-23] MEDS: ENOXAPARIN SOD 30 MG/0.3 ML SYRINGE SC SCH (22:00)
[2021-04-23] MEDS: ATORVASTATIN 20 MG TAB PO SCH (22:00)
[2021-04-24] MEDS: ONDANSETRON HCL 4 MG/2 ML VIAL IV PRN (01:44)
[2021-04-24 05:00] VITALS: BP 146/66
[2021-04-24] MEDS: SODIUM CHLOR 0.9% PF (SALINE LOCK) 10ML VIAL/SYR IV SCH ×3 (05:58→22:42)
[2021-04-24] MEDS: InsuLIN REG 1unit/0.01ml Soln (100units/ml) SC SCH ×4 (06:48→22:45)
[2021-04-24] MEDS: ACCU-CHEK COMFORT CURVE STRIP VI SCH ×4 (06:55→22:43)
[2021-04-24 09:18] VITALS: BP 164/71
[2021-04-24] MEDS: SEVELAMER 800 MG TAB PO SCH ×3 (09:20→17:38)
[2021-04-24] MEDS: ASPirin-EC 81 mg tab PO SCH (09:20)
[2021-04-24] MEDS: CARVEDILOL 12.5 MG TAB PO SCH ×2 (09:20→22:42)
[2021-04-24] MEDS: amLODIPine BESYLATE 5 MG TAB PO SCH (09:21)
[2021-04-24] MEDS: CLOPIDOGREL BISULFATE 75 MG TAB PO SCH (09:21)
[2021-04-24] MEDS: traMADol HCL 50 MG TAB PO PRN (12:54)
[2021-04-24 13:06] VITALS: BP 139/79
[2021-04-24 17:09] VITALS: BP 139/66
[2021-04-24] MEDS ORDERED: VANCOMYCIN 1GM/250ML 250 ML IV ONE (18:00)
[2021-04-24 22:00] VITALS: BP 143/72
[2021-04-24] MEDS: ENOXAPARIN SOD 30 MG/0.3 ML SYRINGE SC SCH (22:43)
[2021-04-24] MEDS: ATORVASTATIN 20 MG TAB PO SCH (22:43)
[2021-04-25 05:00] VITALS: BP 130/60
[2021-04-25] MEDS: InsuLIN REG 1unit/0.01ml Soln (100units/ml) SC SCH ×4 (06:33→22:12)
[2021-04-25] MEDS: SODIUM CHLOR 0.9% PF (SALINE LOCK) 10ML VIAL/SYR IV SCH ×3 (06:33→22:10)
[2021-04-25] MEDS: ACCU-CHEK COMFORT CURVE STRIP VI SCH ×4 (06:33→22:11)
[2021-04-25 06:57] LABS: Basophils # (auto) 0 10 ^3/uL (0-0.2); Basophils % (auto) 0.1 % (0.0-2.0); Eosinophils # (auto) 0.1 10 ^3/uL (0-0.8); Eosinophils % (auto) 0.8 % (0.0-7.0); Hematocrit 26.4 % (41.0-53.0); Hemoglobin 8.7 g/dL (13.5-17.5); Lymphocytes # (auto) 0.8 10 ^3/uL (0.4-5.4); Lymphocytes % (auto) 5.6 % (10.0-50.0); Mean Corpuscular Hemoglobin 30.1 pg (28.0-32.0); Mean Corpuscular Hgb Conc. 32.9 g/dL (32.0-36.0); Mean Corpuscular Volume 91.7 fL (80.0-100.0); Monocytes # (auto) 0.9 10 ^3/uL (0-1.3); Monocytes % (auto) 6.1 % (0.0-12.0); Neutrophils # (auto) 12.6 10 ^3/uL (1.6-8.6); Neutrophils % (auto) 87.4 % (37.0-80.0); Nucleated Red Blood Cells % 0.1 %; Red Blood Cells 2.87 10^6/uL (4.5-5.90); Red Cell Distribution Width 12.9 % (11.8-14.3); White Blood Cell 14.5 10^3/uL (4.4-10.8)
[2021-04-25 07:18] LABS: BUN/Creatinine Ratio 8.5; Calcium 8.1 mg/dL (8.5-10.1); Phosphorus 7.3 mg/dL (2.5-4.90)
[2021-04-25 07:44] LABS: Potassium 6.1 mmol/L (3.5-5.1)
[2021-04-25] MEDS: SEVELAMER 800 MG TAB PO SCH ×3 (08:00→17:28)
[2021-04-25] MEDS: ASPirin-EC 81 mg tab PO SCH (08:51)
[2021-04-25] MEDS: CARVEDILOL 12.5 MG TAB PO SCH ×2 (08:51→22:11)
[2021-04-25] MEDS: amLODIPine BESYLATE 5 MG TAB PO SCH (08:52)
[2021-04-25] MEDS: CLOPIDOGREL BISULFATE 75 MG TAB PO SCH (08:52)
[2021-04-25 09:00] VITALS: BP 129/62
[2021-04-25] MEDS ORDERED: SODIUM CHL 0.9% 1000 ML BAG XX ONE (12:15)
[2021-04-25 12:30] VITALS: BP 143/63
[2021-04-25] MEDS: MORPHINE SULFATE INJECTION 2 MG/ML SYRG IV PRN (16:16)
[2021-04-25 17:03] VITALS: BP 143/63
[2021-04-25] MEDS: traMADol HCL 50 MG TAB PO PRN (18:24)
[2021-04-25 22:00] VITALS: BP 152/68
[2021-04-25] MEDS: ATORVASTATIN 20 MG TAB PO SCH (22:11)
[2021-04-25] MEDS: ENOXAPARIN SOD 30 MG/0.3 ML SYRINGE SC SCH (22:11)
[2021-04-26] MEDS: ONDANSETRON HCL 4 MG/2 ML VIAL IV PRN (03:32)
[2021-04-26 05:00] VITALS: BP 153/73
[2021-04-26] MEDS: ACCU-CHEK COMFORT CURVE STRIP VI SCH ×4 (06:34→22:07)
[2021-04-26] MEDS: InsuLIN REG 1unit/0.01ml Soln (100units/ml) SC SCH ×4 (06:34→21:17)
[2021-04-26] MEDS: SODIUM CHLOR 0.9% PF (SALINE LOCK) 10ML VIAL/SYR IV SCH ×3 (06:34→22:07)
[2021-04-26 06:36] LABS: Basophils # (auto) 0 10 ^3/uL (0-0.2); Basophils % (auto) 0.2 % (0.0-2.0); Eosinophils # (auto) 0.3 10 ^3/uL (0-0.8); Eosinophils % (auto) 2.3 % (0.0-7.0); Hematocrit 27.2 % (41.0-53.0); Hemoglobin 9.1 g/dL (13.5-17.5); Lymphocytes # (auto) 0.6 10 ^3/uL (0.4-5.4); Lymphocytes % (auto) 4.2 % (10.0-50.0); Mean Corpuscular Hemoglobin 30.6 pg (28.0-32.0); Mean Corpuscular Hgb Conc. 33.4 g/dL (32.0-36.0); Mean Corpuscular Volume 91.5 fL (80.0-100.0); Monocytes % (auto) 7.3 % (0.0-12.0); Neutrophils # (auto) 12.2 10 ^3/uL (1.6-8.6); Nucleated Red Blood Cells % 0.1 %; Red Blood Cells 2.97 10^6/uL (4.5-5.90); Red Cell Distribution Width 12.9 % (11.8-14.3); White Blood Cell 14.2 10^3/uL (4.4-10.8)
[2021-04-26] MEDS: ASPirin-EC 81 mg tab PO SCH (08:53)
[2021-04-26] MEDS: SEVELAMER 800 MG TAB PO SCH ×3 (08:54→18:10)
[2021-04-26] MEDS: amLODIPine BESYLATE 5 MG TAB PO SCH (08:54)
[2021-04-26] MEDS: CARVEDILOL 12.5 MG TAB PO SCH ×2 (08:54→22:07)
[2021-04-26] MEDS: CLOPIDOGREL BISULFATE 75 MG TAB PO SCH (08:55)
[2021-04-26 08:59] VITALS: BP 135/45
[2021-04-26 12:19] VITALS: BP 150/67
[2021-04-26 16:59] VITALS: BP 132/54
[2021-04-26] MEDS ORDERED: SODIUM ZIRCONIUM CYCL 10 GM PAK PO ONE (17:30)
[2021-04-26] MEDS: traMADol HCL 50 MG TAB PO PRN (22:06)
[2021-04-26] MEDS: ATORVASTATIN 20 MG TAB PO SCH (22:06)
[2021-04-26] MEDS: ENOXAPARIN SOD 30 MG/0.3 ML SYRINGE SC SCH (22:07)
[2021-04-27] MEDS: MORPHINE SULFATE INJECTION 2 MG/ML SYRG IV PRN ×2 (01:53→18:06)
[2021-04-27 05:00] VITALS: BP 156/65
[2021-04-27 06:00] VITALS: BP 132/78
[2021-04-27] MEDS: SODIUM CHLOR 0.9% PF (SALINE LOCK) 10ML VIAL/SYR IV SCH ×3 (06:00→22:45)
[2021-04-27] MEDS: InsuLIN REG 1unit/0.01ml Soln (100units/ml) SC SCH ×5 (06:01→22:00)
[2021-04-27] MEDS: ACCU-CHEK COMFORT CURVE STRIP VI SCH ×4 (06:01→23:01)
[2021-04-27] MEDS ORDERED: SODIUM CHL 0.9% 1000 ML BAG XX ONE (07:00)
[2021-04-27 07:16] LABS: Basophils # (auto) 0 10 ^3/uL (0-0.2); Basophils % (auto) 0.4 % (0.0-2.0); Eosinophils # (auto) 0.3 10 ^3/uL (0-0.8); Eosinophils % (auto) 2.1 % (0.0-7.0); Hematocrit 26.3 % (41.0-53.0); Hemoglobin 8.8 g/dL (13.5-17.5); Lymphocytes % (auto) 7.6 % (10.0-50.0); Mean Corpuscular Hemoglobin 30.5 pg (28.0-32.0); Mean Corpuscular Hgb Conc. 33.4 g/dL (32.0-36.0); Mean Corpuscular Volume 91.4 fL (80.0-100.0); Monocytes # (auto) 1.2 10 ^3/uL (0-1.3); Monocytes % (auto) 8.8 % (0.0-12.0); Neutrophils # (auto) 10.8 10 ^3/uL (1.6-8.6); Neutrophils % (auto) 81.1 % (37.0-80.0); Nucleated Red Blood Cells % 0.1 %; Red Blood Cells 2.87 10^6/uL (4.5-5.90); White Blood Cell 13.3 10^3/uL (4.4-10.8)
[2021-04-27] MEDS: SEVELAMER 800 MG TAB PO SCH ×4 (08:31→22:44)
[2021-04-27 08:39] VITALS: BP 140/59
[2021-04-27 08:39] LABS: BUN/Creatinine Ratio 7.6; Calcium 7.5 mg/dL (8.5-10.1); Potassium 5.5 mmol/L (3.5-5.1)
[2021-04-27] MEDS: ASPirin-EC 81 mg tab PO SCH (08:40)
[2021-04-27] MEDS: CARVEDILOL 12.5 MG TAB PO SCH ×2 (08:40→22:45)
[2021-04-27] MEDS: CLOPIDOGREL BISULFATE 75 MG TAB PO SCH (08:40)
[2021-04-27] MEDS: amLODIPine BESYLATE 5 MG TAB PO SCH (08:41)
[2021-04-27 12:59] VITALS: BP 154/62
[2021-04-27] MEDS ORDERED: VANCOMYCIN 1GM/250ML 250 ML IV ONE ×2 (16:00→20:30)
[2021-04-27] MEDS ORDERED: SODI5PAK PO (16:13)
[2021-04-27] MEDS ORDERED: SODIUM ZIRCONIUM CYCL 10 GM PAK PO ONE (16:15)
[2021-04-27] MEDS ORDERED: EPOETIN ALFA-EPBX 10,000 UNIT/1ML VIAL SC ONE (21:00)
[2021-04-27 22:00] VITALS: BP 144/56
[2021-04-27] MEDS ORDERED: SODIUM ZIRCONIUM CYCL 10 GM PAK PO SCH (22:00)
[2021-04-27] MEDS: ATORVASTATIN 20 MG TAB PO SCH (22:44)
[2021-04-27] MEDS: HEPARIN SODIUM (PORCINE) 5000 UNITS/ML 1ML VIAL SC SCH (22:47)
[2021-04-28] MEDS: MORPHINE SULFATE INJECTION 2 MG/ML SYRG IV PRN (02:07)
[2021-04-28 05:00] VITALS: BP 154/70
[2021-04-28] MEDS: InsuLIN REG 1unit/0.01ml Soln (100units/ml) SC SCH ×2 (07:09→11:30)
[2021-04-28] MEDS: ACCU-CHEK COMFORT CURVE STRIP VI SCH (07:10)
[2021-04-28 07:26] LABS: Calcium 7.6 mg/dL (8.5-10.1); Potassium 4.8 mmol/L (3.5-5.1)
[2021-04-28 08:00] VITALS: BP 116/63
[2021-04-28 09:12] VITALS: BP 160/67
[2021-04-28] MEDS: amLODIPine BESYLATE 5 MG TAB PO SCH (09:19)
[2021-04-28] MEDS: SEVELAMER 800 MG TAB PO SCH (09:20)
[2021-04-28] MEDS: CARVEDILOL 12.5 MG TAB PO SCH (09:20)
[2021-04-28] MEDS: CLOPIDOGREL BISULFATE 75 MG TAB PO SCH (09:20)
[2021-04-28] MEDS: ASPirin-EC 81 mg tab PO SCH (10:00)
[2021-04-28] MEDS: HEPARIN SODIUM (PORCINE) 5000 UNITS/ML 1ML VIAL SC SCH (10:30)
[2021-04-28] MEDS ORDERED: SEVELAMER 800 MG TAB PO SCH (11:15)
[2021-04-29] MEDS ORDERED: SODIUM CHL 0.9% 1000 ML BAG XX ONE (07:00)
[2021-04-29] MEDS ORDERED: EPOETIN ALFA-EPBX 10,000 UNIT/1ML VIAL SC ONE (21:00)
== END 2021-04-28 11:00 | disposition home health service (06) | DRG 853 ==
LOC: ER 10:28 → TELE 18:08 → TELE-WESTW 20:20 → WEST WING 04-27 09:07
PROVIDERS: ADMIT Internal Medicine; ATTEND Internal Medicine
PROC: 027036Z Dilation of Coronary Artery, One Artery with Three Drug-eluting Intraluminal Devices, Percutaneous Approach (ICD-10-PCS; principal; 2021-04-20)
PROC: 4A023N8 Measurement of Cardiac Sampling and Pressure, Bilateral, Percutaneous Approach (ICD-10-PCS; 2021-04-20)
PROC: B2111ZZ Fluoroscopy of Multiple Coronary Arteries using Low Osmolar Contrast (ICD-10-PCS; 2021-04-20)
PROC: 5A1D70Z Performance of Urinary Filtration, Intermittent, Less than 6 Hours Per Day (ICD-10-PCS; 2021-04-20)
PROC: B41G1ZZ Fluoroscopy of Left Lower Extremity Arteries using Low Osmolar Contrast (ICD-10-PCS; 2021-04-20)
PROC: B41F1ZZ Fluoroscopy of Right Lower Extremity Arteries using Low Osmolar Contrast (ICD-10-PCS; 2021-04-20)
PROC: B2151ZZ Fluoroscopy of Left Heart using Low Osmolar Contrast (ICD-10-PCS; 2021-04-20)
PROC: 5A1D70Z Performance of Urinary Filtration, Intermittent, Less than 6 Hours Per Day (ICD-10-PCS; 2021-04-22)
PROC: 0Y6X0Z0 Detachment at Right 5th Toe, Complete, Open Approach (ICD-10-PCS; 2021-04-23)
PROC: 0QBL0ZZ Excision of Right Tarsal, Open Approach (ICD-10-PCS; 2021-04-23)
PROC: 5A1D70Z Performance of Urinary Filtration, Intermittent, Less than 6 Hours Per Day (ICD-10-PCS; 2021-04-25)
PROC: 5A1D70Z Performance of Urinary Filtration, Intermittent, Less than 6 Hours Per Day (ICD-10-PCS; 2021-04-27)
DX: A41.9 Sepsis, unspecified organism (principal); N18.6 End stage renal disease; I21.4 Non-ST elevation (NSTEMI) myocardial infarction; I50.43 Acute on chronic combined systolic (congestive) and diastolic (congestive) heart failure; J96.00 Acute respiratory failure, unspecified whether with hypoxia or hypercapnia; M86.9 Osteomyelitis, unspecified; E87.1 Hypo-osmolality and hyponatremia; L03.115 Cellulitis of right lower limb; E11.52 Type 2 diabetes mellitus with diabetic peripheral angiopathy with gangrene; I13.2 Hypertensive heart and chronic kidney disease with heart failure and with stage 5 chronic kidney disease, or end stage renal disease; M86.171 Other acute osteomyelitis, right ankle and foot; E11.21 Type 2 diabetes mellitus with diabetic nephropathy; D63.8 Anemia in other chronic diseases classified elsewhere; D69.6 Thrombocytopenia, unspecified; E87.5 Hyperkalemia; B95.61 Methicillin susceptible Staphylococcus aureus infection as the cause of diseases classified elsewhere; E11.22 Type 2 diabetes mellitus with diabetic chronic kidney disease; E11.69 Type 2 diabetes mellitus with other specified complication; E78.5 Hyperlipidemia, unspecified; Z20.822 Contact with and (suspected) exposure to COVID-19; L97.519 Non-pressure chronic ulcer of other part of right foot with unspecified severity; I08.1 Rheumatic disorders of both mitral and tricuspid valves; E83.39 Other disorders of phosphorus metabolism; I27.21 Secondary pulmonary arterial hypertension; I25.10 Atherosclerotic heart disease of native coronary artery without angina pectoris; I25.5 Ischemic cardiomyopathy; L03.031 Cellulitis of right toe; Z82.49 Family history of ischemic heart disease and other diseases of the circulatory system; Z83.3 Family history of diabetes mellitus; Z88.6 Allergy status to analgesic agent; Z91.030 Bee allergy status; Z99.2 Dependence on renal dialysis; Z90.49 Acquired absence of other specified parts of digestive tract
CPT/HCPCS: 36415; 71045; 73700; 73718; 75716; 80048; 80053; 80061; 80074; 80202; 82550; 82565; 82728; 82962; 83036; 83605; 83880; 84100; 84132; 84484; 85025; 85379; 85610; 85730; 86141; 86850; 86900; 86901; 87040; 87070; 87075; 87077; 87081; 87186; 87205; 87426; 90935; 92928; 92929; 93005; 93306; 93460; 93926; 96365; 96368; 96372; 96375; 99152; 99153; 99291; C1751; C1874; G0378; J0690; J0696; J1100; J1815; J2250; J2405; J2704; J3490; J7060

== ENCOUNTER 2021-05-25 14:25 | Inpatient (IN) | payer OTHER ==
[~2021-05-25] VITALS: Ht 157.5 cm; Wt 82.1 kg
[~2021-05-25 14:25] MED LIST changes: +AMLO-496 PO; -ASPI-394 PO; +ASPI1TAB20 PO; +ATOR40TA52 PO; -Atorvastatin Calcium PO; -CALC10TA PO; +CALC667C PO; +CARV12.544 PO; +CLOP75TA28 PO; -ERGO1CAP23 PO; -LABE200T7 PO; -LAMO100T44 PO; -LOSA-39 PO; -METO-517 PO; -NIFE1TAB30 PO; -NIFE90TA49 PO; -Nifedipine PO; -PANT40TA2 PO; -SERT25TA14 PO; +SODI5PAK PO
[2021-05-25 18:33] LABS: Basophils # (auto) 0 10 ^3/uL (0-0.2); Basophils % (auto) 0.7 % (0.0-2.0); Eosinophils # (auto) 0.1 10 ^3/uL (0-0.8); Hematocrit 23.1 % (41.0-53.0); Hemoglobin 7.8 g/dL (13.5-17.5); Lymphocytes # (auto) 0.7 10 ^3/uL (0.4-5.4); Mean Corpuscular Volume 91.9 fL (80.0-100.0); Neutrophils # (auto) 4.9 10 ^3/uL (1.6-8.6); White Blood Cell 6.6 10^3/uL (4.4-10.8)
[2021-05-25 18:35] LABS: Eosinophils % (auto) 1.8 % (0.0-7.0); Lymphocytes % (auto) 10.5 % (10.0-50.0); Mean Corpuscular Hgb Conc. 33.7 g/dL (32.0-36.0); Monocytes # (auto) 0.9 10 ^3/uL (0-1.3); Monocytes % (auto) 13.3 % (0.0-12.0); Neutrophils % (auto) 73.7 % (37.0-80.0); Red Blood Cells 2.51 10^6/uL (4.5-5.90); Red Cell Distribution Width 15.7 % (11.8-14.3)
[2021-05-25 18:48] LABS: Albumin 2.9 g/dL (3.4-5.0); Calcium 8.5 mg/dL (8.5-10.1)
[2021-05-25 18:51] LABS: INR 1.27 (0.9-1.15); Partial Thromboplastin Time 35.1 sec (23.6-33.0)
[2021-05-25 18:52] LABS: BUN/Creatinine Ratio 5.2; Total Protein 6.8 g/dL (6.4-8.2)
[2021-05-25 19:10] LABS: Potassium 5.9 mmol/L (3.5-5.1)
[2021-05-25] MEDS ORDERED: CALCIUM GLUC 1,000mg/50ml-NS 50 ML IV ONE (19:15)
[2021-05-25] MEDS ORDERED: SODIUM BICARBONATE 8.4 % INJ 50ML VIAL IV ONE (19:15)
[2021-05-26] MEDS ORDERED: MORPHINE SULFATE 4 MG/ML SYR/VIAL IV ONE ×2 (00:45→05:45)
[2021-05-26] MEDS ORDERED: ONDANSETRON HCL 4 MG/2 ML VIAL IV ONE ×2 (00:45→05:45)
[2021-05-26] MEDS ORDERED: PIPERACILLIN-TAZOB 3.375GM 100 ML IV ONE (01:15)
[2021-05-26] MEDS ORDERED: MEROPENEM 1GM IVPB 100 ML IV SCH (06:00)
[2021-05-26] MEDS: MEROPENEM 500MG IVPB 50 ML IV SCH (09:45)
[2021-05-26] MEDS: SODIUM ZIRCONIUM CYCL 10 GM PAK PO SCH ×3 (12:40→22:00)
[2021-05-26] MEDS ORDERED: DOCUSATE SOD 100 MG CAP PO PRN (14:30)
[2021-05-26] MEDS ORDERED: MORPHINE SULFATE INJECTION 2 MG/ML SYRG IV PRN (14:30)
[2021-05-26] MEDS ORDERED: ACETAMINOPHEN 325 MG TAB PO PRN (14:30)
[2021-05-26] MEDS ORDERED: InsuLIN REG 1unit/0.01ml Soln (100units/ml) IV ONE (23:00)
[2021-05-26] MEDS ORDERED: SODIUM BICARBONATE 8.4 % INJ 50ML VIAL IV ONE ×2 (23:00→23:15)
[2021-05-26] MEDS ORDERED: CALCIUM GLUC 1,000mg/50ml-NS 50 ML IV ONE (23:15)
[2021-05-26] MEDS ORDERED: DEXTROSE (50%) 50ML SYRG IV ONE (23:15)
[2021-05-27] MEDS: ONDANSETRON HCL 4 MG/2 ML VIAL IV PRN (01:12)
[2021-05-27] MEDS: MORPHINE SULFATE INJECTION 2 MG/ML SYRG IV PRN ×2 (01:12→22:38)
[2021-05-27] MEDS: MEROPENEM 500MG IVPB 50 ML IV SCH (05:48)
[2021-05-27] MEDS ORDERED: SODIUM ZIRCONIUM CYCL 10 GM PAK PO ONE (06:00)
[2021-05-27] MEDS ORDERED: SODIUM CHL 0.9% 1000 ML BAG XX ONE (07:00)
[2021-05-27 07:52] LABS: Basophils # (auto) 0 10 ^3/uL (0-0.2); Basophils % (auto) 0.7 % (0.0-2.0); Eosinophils # (auto) 0.4 10 ^3/uL (0-0.8); Eosinophils % (auto) 6.6 % (0.0-7.0); Hemoglobin 7.4 g/dL (13.5-17.5); Lymphocytes # (auto) 0.7 10 ^3/uL (0.4-5.4); Lymphocytes % (auto) 11.5 % (10.0-50.0); Mean Corpuscular Hemoglobin 30.9 pg (28.0-32.0); Mean Corpuscular Hgb Conc. 33.9 g/dL (32.0-36.0); Mean Corpuscular Volume 91.3 fL (80.0-100.0); Monocytes # (auto) 0.9 10 ^3/uL (0-1.3); Monocytes % (auto) 13.4 % (0.0-12.0); Neutrophils # (auto) 4.3 10 ^3/uL (1.6-8.6); Neutrophils % (auto) 67.8 % (37.0-80.0); Red Blood Cells 2.41 10^6/uL (4.5-5.90); Red Cell Distribution Width 15.8 % (11.8-14.3); White Blood Cell 6.4 10^3/uL (4.4-10.8)
[2021-05-27 08:08] LABS: Calcium 8.5 mg/dL (8.5-10.1)
[2021-05-27 08:10] LABS: BUN/Creatinine Ratio 5.6
[2021-05-27 08:26] LABS: Potassium 6.1 mmol/L (3.5-5.1)
[2021-05-27] MEDS ORDERED: DEXTROSE (50%) 50ML SYRG IV ONE (12:45)
[2021-05-27] MEDS ORDERED: SODIUM BICARBONATE 8.4 % INJ 50ML VIAL IV ONE (12:45)
[2021-05-27] MEDS ORDERED: InsuLIN REG 1unit/0.01ml Soln (100units/ml) IV ONE (12:45)
[2021-05-27] MEDS ORDERED: CALCIUM GLUC 1,000mg/50ml-NS 50 ML IV ONE (12:45)
[2021-05-27 17:00] VITALS: BP 175/64
[2021-05-27] MEDS ORDERED: EPOETIN ALFA-EPBX 10,000 UNIT/1ML VIAL SC ONE (21:00)
[2021-05-27 22:00] VITALS: BP 105/53
[2021-05-28 05:00] VITALS: BP 147/84
[2021-05-28] MEDS: MEROPENEM 500MG IVPB 50 ML IV SCH (05:58)
[2021-05-28] MEDS: MORPHINE SULFATE INJECTION 2 MG/ML SYRG IV PRN (06:29)
[2021-05-28 08:07] LABS: Basophils # (auto) 0 10 ^3/uL (0-0.2); Basophils % (auto) 0.4 % (0.0-2.0); Eosinophils # (auto) 0.3 10 ^3/uL (0-0.8); Eosinophils % (auto) 3.8 % (0.0-7.0); Hematocrit 22.4 % (41.0-53.0); Hemoglobin 7.6 g/dL (13.5-17.5); Lymphocytes # (auto) 0.9 10 ^3/uL (0.4-5.4); Lymphocytes % (auto) 11.4 % (10.0-50.0); Mean Corpuscular Hgb Conc. 33.8 g/dL (32.0-36.0); Mean Corpuscular Volume 91.6 fL (80.0-100.0); Monocytes # (auto) 0.8 10 ^3/uL (0-1.3); Monocytes % (auto) 11.1 % (0.0-12.0); Neutrophils # (auto) 5.5 10 ^3/uL (1.6-8.6); Neutrophils % (auto) 73.3 % (37.0-80.0); Red Blood Cells 2.45 10^6/uL (4.5-5.90); White Blood Cell 7.5 10^3/uL (4.4-10.8)
[2021-05-28 08:15] LABS: Potassium 4.3 mmol/L (3.5-5.1)
[2021-05-28 08:18] LABS: BUN/Creatinine Ratio 4.6
[2021-05-28 08:30] VITALS: BP 120/70
[2021-05-28 13:00] VITALS: BP 120/75
[2021-05-28] MEDS: ceFAZolin 1GM/50ML 50 ML IV SCH (15:26)
[2021-05-28 16:30] VITALS: BP 118/58
[2021-05-28] MEDS: LINEZOLID 600MG/300ML 300 ML IV SCH (18:56)
[2021-05-29] MEDS: MORPHINE SULFATE INJECTION 2 MG/ML SYRG IV PRN ×4 (00:29→21:31)
[2021-05-29] MEDS: ceFAZolin 1GM/50ML 50 ML IV SCH ×2 (01:55→14:31)
[2021-05-29 05:00] VITALS: BP 157/42
[2021-05-29] MEDS: LINEZOLID 600MG/300ML 300 ML IV SCH ×2 (05:49→18:02)
[2021-05-29] MEDS ORDERED: ACET-1156 PO (06:16)
[2021-05-29] MEDS ORDERED: CLIN150C8 PO (06:19)
[2021-05-29] MEDS ORDERED: LISI40TA11 PO (06:19)
[2021-05-29] MEDS ORDERED: LEVO-28 PO (06:19)
[2021-05-29] MEDS ORDERED: HYDR25TA4 PO (06:19)
[2021-05-29] MEDS ORDERED: SODIUM CHL 0.9% 1000 ML BAG XX ONE (07:00)
[2021-05-29 09:00] VITALS: BP 164/68
[2021-05-29] MEDS ORDERED: amLODIPine BESYLATE 5 MG TAB PO ONE (11:30)
[2021-05-29 12:05] LABS: Basophils # (auto) 0 10 ^3/uL (0-0.2); Eosinophils # (auto) 0.4 10 ^3/uL (0-0.8); Hemoglobin 7.4 g/dL (13.5-17.5); Monocytes # (auto) 0.7 10 ^3/uL (0-1.3); Neutrophils # (auto) 6.3 10 ^3/uL (1.6-8.6)
[2021-05-29 12:09] LABS: Basophils % (auto) 0.3 % (0.0-2.0); Eosinophils % (auto) 4.8 % (0.0-7.0); Hematocrit 21.9 % (41.0-53.0); Lymphocytes # (auto) 0.8 10 ^3/uL (0.4-5.4); Lymphocytes % (auto) 9.5 % (10.0-50.0); Mean Corpuscular Hemoglobin 30.9 pg (28.0-32.0); Neutrophils % (auto) 77.4 % (37.0-80.0); Red Blood Cells 2.41 10^6/uL (4.5-5.90); Red Cell Distribution Width 15.9 % (11.8-14.3); White Blood Cell 8.2 10^3/uL (4.4-10.8)
[2021-05-29] MEDS: CARVEDILOL 12.5 MG TAB PO SCH ×2 (12:21→21:28)
[2021-05-29 12:24] LABS: BUN/Creatinine Ratio 5.6; Calcium 8.2 mg/dL (8.5-10.1); Potassium 4.7 mmol/L (3.5-5.1)
[2021-05-29 12:51] VITALS: BP 168/73
[2021-05-29] MEDS: LISINOPRIL 20 MG TAB PO SCH (14:30)
[2021-05-29 17:00] VITALS: BP 138/63
[2021-05-29] MEDS ORDERED: EPOETIN ALFA-EPBX 10,000 UNIT/1ML VIAL SC ONE (21:00)
[2021-05-29] MEDS: ATORVASTATIN 20 MG TAB PO SCH (21:28)
[2021-05-29 22:00] VITALS: BP 169/46
[2021-05-30] MEDS: ceFAZolin 1GM/50ML 50 ML IV SCH ×2 (02:37→13:38)
[2021-05-30] MEDS: MORPHINE SULFATE INJECTION 2 MG/ML SYRG IV PRN ×5 (02:38→23:19)
[2021-05-30 05:00] VITALS: BP 159/43
[2021-05-30] MEDS: LINEZOLID 600MG/300ML 300 ML IV SCH ×2 (05:41→17:32)
[2021-05-30 07:55] LABS: Basophils # (auto) 0 10 ^3/uL (0-0.2); Eosinophils # (auto) 0.5 10 ^3/uL (0-0.8); Hematocrit 21.4 % (41.0-53.0); Lymphocytes # (auto) 0.6 10 ^3/uL (0.4-5.4); Monocytes # (auto) 0.6 10 ^3/uL (0-1.3); Neutrophils % (auto) 80.4 % (37.0-80.0); White Blood Cell 8.5 10^3/uL (4.4-10.8)
[2021-05-30 07:57] LABS: Basophils % (auto) 0.3 % (0.0-2.0); Eosinophils % (auto) 6.1 % (0.0-7.0); Hemoglobin 7.3 g/dL (13.5-17.5); Lymphocytes % (auto) 6.6 % (10.0-50.0); Mean Corpuscular Hgb Conc. 33.9 g/dL (32.0-36.0); Mean Corpuscular Volume 91.3 fL (80.0-100.0); Monocytes % (auto) 6.6 % (0.0-12.0); Neutrophils # (auto) 6.8 10 ^3/uL (1.6-8.6); Red Blood Cells 2.35 10^6/uL (4.5-5.90); Red Cell Distribution Width 15.9 % (11.8-14.3)
[2021-05-30 08:12] LABS: Potassium 4.8 mmol/L (3.5-5.1)
[2021-05-30 08:19] LABS: BUN/Creatinine Ratio 5.7; Calcium 7.7 mg/dL (8.5-10.1)
[2021-05-30 09:04] VITALS: BP 150/66
[2021-05-30] MEDS ORDERED: HCTZ 25 MG TAB PO SCH (10:00)
[2021-05-30] MEDS: CARVEDILOL 12.5 MG TAB PO SCH ×2 (10:54→23:18)
[2021-05-30] MEDS: amLODIPine BESYLATE 5 MG TAB PO SCH (10:55)
[2021-05-30] MEDS: LISINOPRIL 20 MG TAB PO SCH (10:55)
[2021-05-30] MEDS ORDERED: HYDROcodone-ACET 5/325MG TAB PO PRN (11:00)
[2021-05-30] MEDS: HYDROcodone-ACET 5/325MG TAB PO PRN (12:37)
[2021-05-30 12:58] VITALS: BP 164/75
[2021-05-30 17:00] VITALS: BP 137/60
[2021-05-30 22:00] VITALS: BP 149/60
[2021-05-30] MEDS: ATORVASTATIN 20 MG TAB PO SCH (23:18)
[2021-05-31] MEDS: HYDROcodone-ACET 5/325MG TAB PO PRN ×3 (01:57→20:21)
[2021-05-31] MEDS: ceFAZolin 1GM/50ML 50 ML IV SCH (01:58)
[2021-05-31] MEDS: MORPHINE SULFATE INJECTION 2 MG/ML SYRG IV PRN (03:41)
[2021-05-31 04:52] LABS: Basophils # (auto) 0 10 ^3/uL (0-0.2); Red Cell Distribution Width 15.6 % (11.8-14.3)
[2021-05-31 04:54] LABS: Basophils % (auto) 0.3 % (0.0-2.0); Eosinophils # (auto) 0.8 10 ^3/uL (0-0.8); Eosinophils % (auto) 7.1 % (0.0-7.0); Hematocrit 21.9 % (41.0-53.0); Hemoglobin 7.2 g/dL (13.5-17.5); Lymphocytes # (auto) 0.7 10 ^3/uL (0.4-5.4); Lymphocytes % (auto) 6.3 % (10.0-50.0); Mean Corpuscular Hemoglobin 30.4 pg (28.0-32.0); Mean Corpuscular Hgb Conc. 33.1 g/dL (32.0-36.0); Mean Corpuscular Volume 91.7 fL (80.0-100.0); Monocytes # (auto) 0.8 10 ^3/uL (0-1.3); Monocytes % (auto) 7.3 % (0.0-12.0); Neutrophils # (auto) 8.6 10 ^3/uL (1.6-8.6); Red Blood Cells 2.39 10^6/uL (4.5-5.90); White Blood Cell 10.9 10^3/uL (4.4-10.8)
[2021-05-31 05:00] VITALS: BP 160/60
[2021-05-31 05:14] LABS: BUN/Creatinine Ratio 5.9; Calcium 7.8 mg/dL (8.5-10.1); Potassium 5.3 mmol/L (3.5-5.1)
[2021-05-31] MEDS ORDERED: SODIUM CHL 0.9% 1000 ML BAG XX ONE (07:00)
[2021-05-31 08:00] VITALS: BP 144/67
[2021-05-31 09:00] VITALS: BP 144/67
[2021-05-31] MEDS: LISINOPRIL 20 MG TAB PO SCH (10:00)
[2021-05-31] MEDS ORDERED: VANCOMYCIN PER PHARMACY 0 MG IV SCH (10:45)
[2021-05-31] MEDS ORDERED: VANCOMYCIN 1GM/250ML 250 ML IV ONE (12:00)
[2021-05-31] MEDS: CARVEDILOL 12.5 MG TAB PO SCH ×2 (12:26→21:57)
[2021-05-31] MEDS: amLODIPine BESYLATE 5 MG TAB PO SCH (12:27)
[2021-05-31 13:00] VITALS: BP 153/58
[2021-05-31] MEDS: SODIUM ZIRCONIUM CYCL 10 GM PAK PO SCH (15:03)
[2021-05-31 17:00] VITALS: BP 154/68
[2021-05-31] MEDS ORDERED: EPOETIN ALFA-EPBX 10,000 UNIT/1ML VIAL SC ONE (21:00)
[2021-05-31 21:30] VITALS: BP 150/68
[2021-05-31] MEDS: ATORVASTATIN 20 MG TAB PO SCH (21:57)
[2021-06-01] MEDS: ONDANSETRON HCL 4 MG/2 ML VIAL IV PRN ×2 (02:08→22:57)
[2021-06-01] MEDS: MORPHINE SULFATE INJECTION 2 MG/ML SYRG IV PRN (02:08)
[2021-06-01 05:00] VITALS: BP 152/80
[2021-06-01] MEDS ORDERED: SODIUM CHL 0.9% 1000 ML BAG XX ONE (07:00)
[2021-06-01 07:06] LABS: BUN/Creatinine Ratio 6.8; Calcium 7.7 mg/dL (8.5-10.1); Potassium 4.9 mmol/L (3.5-5.1)
[2021-06-01 07:10] LABS: Basophils # (auto) 0 10 ^3/uL (0-0.2); Eosinophils # (auto) 0.5 10 ^3/uL (0-0.8); Monocytes # (auto) 0.7 10 ^3/uL (0-1.3); Neutrophils # (auto) 7.8 10 ^3/uL (1.6-8.6); White Blood Cell 9.6 10^3/uL (4.4-10.8)
[2021-06-01 07:16] LABS: Basophils % (auto) 0.2 % (0.0-2.0); Eosinophils % (auto) 5.6 % (0.0-7.0); Hemoglobin 7.3 g/dL (13.5-17.5); Lymphocytes # (auto) 0.5 10 ^3/uL (0.4-5.4); Lymphocytes % (auto) 5.6 % (10.0-50.0); Mean Corpuscular Hemoglobin 31.2 pg (28.0-32.0); Mean Corpuscular Hgb Conc. 34.6 g/dL (32.0-36.0); Monocytes % (auto) 6.8 % (0.0-12.0); Neutrophils % (auto) 81.8 % (37.0-80.0); Red Blood Cells 2.33 10^6/uL (4.5-5.90); Red Cell Distribution Width 16.2 % (11.8-14.3)
[2021-06-01 08:00] VITALS: BP 136/52
[2021-06-01 09:00] VITALS: BP 136/52
[2021-06-01 09:59] LABS: INR 1.23 (0.9-1.15); Partial Thromboplastin Time 35.3 sec (23.6-33.0)
[2021-06-01] MEDS: CARVEDILOL 12.5 MG TAB PO SCH ×2 (10:00→22:19)
[2021-06-01] MEDS: amLODIPine BESYLATE 5 MG TAB PO SCH (10:00)
[2021-06-01] MEDS: LISINOPRIL 20 MG TAB PO SCH (10:00)
[2021-06-01] MEDS: SODIUM ZIRCONIUM CYCL 10 GM PAK PO SCH (10:44)
[2021-06-01 13:00] VITALS: BP 143/66
[2021-06-01] MEDS ORDERED: VANCOMYCIN 1GM/250ML 250 ML IV ONE (16:00)
[2021-06-01 18:00] VITALS: BP 149/71
[2021-06-01] MEDS ORDERED: EPOETIN ALFA-EPBX 10,000 UNIT/1ML VIAL SC ONE (21:00)
[2021-06-01 22:00] VITALS: BP 152/68
[2021-06-01] MEDS: ATORVASTATIN 20 MG TAB PO SCH (22:19)
[2021-06-02 05:00] VITALS: BP 150/62
[2021-06-02 07:08] LABS: Basophils # (auto) 0 10 ^3/uL (0-0.2); Eosinophils # (auto) 0.4 10 ^3/uL (0-0.8); Lymphocytes # (auto) 0.6 10 ^3/uL (0.4-5.4); Neutrophils # (auto) 8.3 10 ^3/uL (1.6-8.6); Red Blood Cells 2.23 10^6/uL (4.5-5.90)
[2021-06-02 07:13] LABS: Basophils % (auto) 0.2 % (0.0-2.0); Eosinophils % (auto) 3.7 % (0.0-7.0); Hematocrit 19.9 % (41.0-53.0); Hemoglobin 7.3 g/dL (13.5-17.5); Lymphocytes % (auto) 6.1 % (10.0-50.0); Mean Corpuscular Hemoglobin 32.6 pg (28.0-32.0); Mean Corpuscular Hgb Conc. 36.5 g/dL (32.0-36.0); Mean Corpuscular Volume 89.5 fL (80.0-100.0); Monocytes # (auto) 0.7 10 ^3/uL (0-1.3); Monocytes % (auto) 7.3 % (0.0-12.0); Neutrophils % (auto) 82.7 % (37.0-80.0); Nucleated Red Blood Cells % 0.1 %; Red Cell Distribution Width 15.4 % (11.8-14.3)
[2021-06-02 07:27] LABS: BUN/Creatinine Ratio 6.7; Calcium 7.7 mg/dL (8.5-10.1); Potassium 5.1 mmol/L (3.5-5.1)
[2021-06-02] MEDS ORDERED: SODIUM CHL 0.9% 1000 ML BAG XX ONE (08:30)
[2021-06-02 09:00] VITALS: BP 155/56
[2021-06-02] MEDS: HYDROcodone-ACET 5/325MG TAB PO PRN (09:16)
[2021-06-02] MEDS: SODIUM ZIRCONIUM CYCL 10 GM PAK PO SCH (09:18)
[2021-06-02] MEDS: amLODIPine BESYLATE 5 MG TAB PO SCH ×2 (09:18→18:13)
[2021-06-02] MEDS: LISINOPRIL 20 MG TAB PO SCH ×2 (09:18→18:14)
[2021-06-02] MEDS: CARVEDILOL 12.5 MG TAB PO SCH ×2 (09:18→22:42)
[2021-06-02 12:56] VITALS: BP 157/61
[2021-06-02] MEDS ORDERED: VANCOMYCIN 1GM/250ML 250 ML IV ONE (16:00)
[2021-06-02 16:56] VITALS: BP 160/57
[2021-06-02] MEDS ORDERED: EPOETIN ALFA-EPBX 10,000 UNIT/1ML VIAL SC ONE (21:00)
[2021-06-02 22:00] VITALS: BP 154/47
[2021-06-02] MEDS: ATORVASTATIN 20 MG TAB PO SCH (22:42)
[2021-06-03] VITALS (8 sets, daily range): BP systolic 116–153; BP diastolic 45–76
[2021-06-03] MEDS: HYDROcodone-ACET 5/325MG TAB PO PRN ×3 (00:07→21:04)
[2021-06-03 07:42] LABS: Basophils # (auto) 0 10 ^3/uL (0-0.2); Eosinophils # (auto) 0.4 10 ^3/uL (0-0.8); Neutrophils # (auto) 8.3 10 ^3/uL (1.6-8.6)
[2021-06-03 07:43] LABS: Basophils % (auto) 0.2 % (0.0-2.0); Eosinophils % (auto) 3.7 % (0.0-7.0); Hematocrit 19.6 % (41.0-53.0); Lymphocytes # (auto) 0.6 10 ^3/uL (0.4-5.4); Lymphocytes % (auto) 6.1 % (10.0-50.0); Mean Corpuscular Hgb Conc. 34.3 g/dL (32.0-36.0); Mean Corpuscular Volume 90.4 fL (80.0-100.0); Monocytes # (auto) 1.1 10 ^3/uL (0-1.3); Red Blood Cells 2.17 10^6/uL (4.5-5.90); White Blood Cell 10.5 10^3/uL (4.4-10.8)
[2021-06-03 07:52] LABS: Hemoglobin 6.7 g/dL (13.5-17.5)
[2021-06-03 08:31] LABS: Potassium 4.8 mmol/L (3.5-5.1)
[2021-06-03 08:43] LABS: BUN/Creatinine Ratio 6.6; Calcium 7.5 mg/dL (8.5-10.1)
[2021-06-03] MEDS: SODIUM ZIRCONIUM CYCL 10 GM PAK PO SCH (09:29)
[2021-06-03] MEDS: amLODIPine BESYLATE 5 MG TAB PO SCH (09:29)
[2021-06-03] MEDS: CARVEDILOL 12.5 MG TAB PO SCH ×2 (09:30→22:19)
[2021-06-03] MEDS: LISINOPRIL 20 MG TAB PO SCH (09:30)
[2021-06-03] MEDS: ATORVASTATIN 20 MG TAB PO SCH (22:20)
[2021-06-04] MEDS: HYDROcodone-ACET 5/325MG TAB PO PRN ×2 (04:08→23:31)
[2021-06-04 05:00] VITALS: BP 154/55
[2021-06-04 09:00] VITALS: BP 149/67
[2021-06-04 09:16] LABS: Basophils # (auto) 0 10 ^3/uL (0-0.2); Eosinophils # (auto) 0.5 10 ^3/uL (0-0.8); Hemoglobin 8.2 g/dL (13.5-17.5); Mean Corpuscular Hgb Conc. 33.9 g/dL (32.0-36.0); Monocytes # (auto) 1.1 10 ^3/uL (0-1.3); Monocytes % (auto) 9.7 % (0.0-12.0)
[2021-06-04 09:18] LABS: Basophils % (auto) 0.4 % (0.0-2.0); Eosinophils % (auto) 4.3 % (0.0-7.0); Hematocrit 24.2 % (41.0-53.0); Lymphocytes # (auto) 0.8 10 ^3/uL (0.4-5.4); Lymphocytes % (auto) 6.7 % (10.0-50.0); Mean Corpuscular Hemoglobin 30.4 pg (28.0-32.0); Mean Corpuscular Volume 89.7 fL (80.0-100.0); Neutrophils # (auto) 8.9 10 ^3/uL (1.6-8.6); Neutrophils % (auto) 78.9 % (37.0-80.0); Red Cell Distribution Width 15.9 % (11.8-14.3); White Blood Cell 11.3 10^3/uL (4.4-10.8)
[2021-06-04 09:44] LABS: Calcium 8.2 mg/dL (8.5-10.1); Potassium 5.2 mmol/L (3.5-5.1)
[2021-06-04] MEDS: CARVEDILOL 12.5 MG TAB PO SCH ×2 (11:50→23:30)
[2021-06-04] MEDS: amLODIPine BESYLATE 5 MG TAB PO SCH (11:51)
[2021-06-04] MEDS: SODIUM ZIRCONIUM CYCL 10 GM PAK PO SCH (11:52)
[2021-06-04] MEDS: LISINOPRIL 20 MG TAB PO SCH (11:52)
[2021-06-04 13:00] VITALS: BP 142/64
[2021-06-04] MEDS: SODIUM ZIRCONIUM CYCL 10 GM PAK PO ONE ×2 (16:00→18:17)
[2021-06-04] MEDS ORDERED: VANCOMYCIN 500 MG in D5W 5% 100 ML IV ONE (16:00)
[2021-06-04 17:00] VITALS: BP 142/64
[2021-06-04 22:00] VITALS: BP 149/71
[2021-06-04] MEDS: ATORVASTATIN 20 MG TAB PO SCH (23:30)
[2021-06-05 05:00] VITALS: BP 133/56
[2021-06-05] MEDS: MORPHINE SULFATE INJECTION 2 MG/ML SYRG IV PRN ×4 (05:53→21:38)
[2021-06-05 09:00] VITALS: BP 133/55
[2021-06-05] MEDS: CARVEDILOL 12.5 MG TAB PO SCH ×2 (09:13→21:51)
[2021-06-05] MEDS: SODIUM ZIRCONIUM CYCL 10 GM PAK PO SCH (09:14)
[2021-06-05] MEDS: LISINOPRIL 20 MG TAB PO SCH (09:14)
[2021-06-05] MEDS: amLODIPine BESYLATE 5 MG TAB PO SCH (09:14)
[2021-06-05] MEDS: HYDROcodone-ACET 5/325MG TAB PO PRN (12:43)
[2021-06-05 13:00] VITALS: BP 142/58
[2021-06-05] MEDS ORDERED: SODIUM CHL 0.9% 1000 ML BAG XX ONE (15:15)
[2021-06-05 17:00] VITALS: BP 118/61
[2021-06-05 18:13] LABS: Basophils # (auto) 0 10 ^3/uL (0-0.2); Basophils % (auto) 0.2 % (0.0-2.0); Eosinophils # (auto) 0.5 10 ^3/uL (0-0.8); Eosinophils % (auto) 5.4 % (0.0-7.0); Hematocrit 24.7 % (41.0-53.0); Hemoglobin 8.5 g/dL (13.5-17.5); Lymphocytes # (auto) 0.6 10 ^3/uL (0.4-5.4); Mean Corpuscular Hemoglobin 30.9 pg (28.0-32.0); Mean Corpuscular Hgb Conc. 34.2 g/dL (32.0-36.0); Mean Corpuscular Volume 90.4 fL (80.0-100.0); Monocytes % (auto) 10.5 % (0.0-12.0); Neutrophils # (auto) 7.5 10 ^3/uL (1.6-8.6); Neutrophils % (auto) 77.9 % (37.0-80.0); Red Blood Cells 2.74 10^6/uL (4.5-5.90); Red Cell Distribution Width 16.3 % (11.8-14.3); White Blood Cell 9.6 10^3/uL (4.4-10.8)
[2021-06-05] MEDS ORDERED: VANCOMYCIN 500 MG in D5W 5% 100 ML IV ONE (20:00)
[2021-06-05] MEDS ORDERED: EPOETIN ALFA-EPBX 10,000 UNIT/1ML VIAL SC ONE (21:00)
[2021-06-05] MEDS: ATORVASTATIN 20 MG TAB PO SCH (21:51)
[2021-06-05 22:00] VITALS: BP 158/75
[2021-06-06 05:00] VITALS: BP 142/72
[2021-06-06 07:33] LABS: Basophils # (auto) 0 10 ^3/uL (0-0.2); Eosinophils # (auto) 0.5 10 ^3/uL (0-0.8); Lymphocytes # (auto) 0.5 10 ^3/uL (0.4-5.4); Neutrophils # (auto) 6.6 10 ^3/uL (1.6-8.6); Nucleated Red Blood Cells % 0.1 %; White Blood Cell 8.7 10^3/uL (4.4-10.8)
[2021-06-06 07:37] LABS: Basophils % (auto) 0.5 % (0.0-2.0); Eosinophils % (auto) 5.4 % (0.0-7.0); Hematocrit 23.2 % (41.0-53.0); Mean Corpuscular Hemoglobin 30.9 pg (28.0-32.0); Mean Corpuscular Hgb Conc. 34.3 g/dL (32.0-36.0); Mean Corpuscular Volume 90.1 fL (80.0-100.0); Monocytes # (auto) 1.1 10 ^3/uL (0-1.3); Monocytes % (auto) 12.2 % (0.0-12.0); Neutrophils % (auto) 75.9 % (37.0-80.0); Red Blood Cells 2.58 10^6/uL (4.5-5.90); Red Cell Distribution Width 16.4 % (11.8-14.3)
[2021-06-06 08:00] VITALS: BP 139/61
[2021-06-06] MEDS: CARVEDILOL 12.5 MG TAB PO SCH ×2 (09:02→22:47)
[2021-06-06] MEDS: SODIUM ZIRCONIUM CYCL 10 GM PAK PO SCH (09:03)
[2021-06-06] MEDS: amLODIPine BESYLATE 5 MG TAB PO SCH (09:04)
[2021-06-06] MEDS: LISINOPRIL 20 MG TAB PO SCH (09:05)
[2021-06-06] MEDS ORDERED: CLIN300C8 PO (10:28)
[2021-06-06 12:00] VITALS: BP 145/51
[2021-06-06 16:00] VITALS: BP 139/65
[2021-06-06 22:00] VITALS: BP 146/55
[2021-06-06] MEDS: ATORVASTATIN 20 MG TAB PO SCH (22:45)
[2021-06-07] MEDS: HYDROcodone-ACET 5/325MG TAB PO PRN ×3 (00:38→23:56)
[2021-06-07 05:00] VITALS: BP 104/80
[2021-06-07] MEDS: CARVEDILOL 12.5 MG TAB PO SCH ×2 (08:49→22:27)
[2021-06-07] MEDS: amLODIPine BESYLATE 5 MG TAB PO SCH (08:50)
[2021-06-07] MEDS: SODIUM ZIRCONIUM CYCL 10 GM PAK PO SCH (08:50)
[2021-06-07] MEDS: LISINOPRIL 20 MG TAB PO SCH (08:50)
[2021-06-07 09:09] LABS: Basophils # (auto) 0 10 ^3/uL (0-0.2); Eosinophils # (auto) 0.4 10 ^3/uL (0-0.8); Hemoglobin 8.1 g/dL (13.5-17.5); Lymphocytes # (auto) 0.7 10 ^3/uL (0.4-5.4); Neutrophils # (auto) 6.9 10 ^3/uL (1.6-8.6)
[2021-06-07 09:10] LABS: Basophils % (auto) 0.5 % (0.0-2.0); Eosinophils % (auto) 4.7 % (0.0-7.0); Hematocrit 23.8 % (41.0-53.0); Lymphocytes % (auto) 8.2 % (10.0-50.0); Mean Corpuscular Hemoglobin 30.9 pg (28.0-32.0); Mean Corpuscular Volume 90.9 fL (80.0-100.0); Neutrophils % (auto) 75.6 % (37.0-80.0); Red Blood Cells 2.62 10^6/uL (4.5-5.90); Red Cell Distribution Width 16.1 % (11.8-14.3); White Blood Cell 9.1 10^3/uL (4.4-10.8)
[2021-06-07 11:31] VITALS: BP 99/64
[2021-06-07 15:10] VITALS: BP 141/55
[2021-06-07 18:52] VITALS: BP 141/60
[2021-06-07 21:00] VITALS: BP 143/62
[2021-06-07] MEDS: ATORVASTATIN 20 MG TAB PO SCH (22:27)
[2021-06-07] MEDS: NITROGLYCERIN 0.4 MG SL TAB SL PRN (22:52)
[2021-06-08] MEDS: NITROGLYCERIN 0.4 MG SL TAB SL PRN (02:43)
[2021-06-08 05:00] VITALS: BP 147/63
[2021-06-08] MEDS ORDERED: SODIUM CHL 0.9% 1000 ML BAG XX ONE (07:00)
[2021-06-08 08:22] LABS: BUN/Creatinine Ratio 8.6; Calcium 8.1 mg/dL (8.5-10.1)
[2021-06-08 08:25] LABS: Basophils # (auto) 0 10 ^3/uL (0-0.2); Basophils % (auto) 0.3 % (0.0-2.0); Eosinophils # (auto) 0.4 10 ^3/uL (0-0.8); Eosinophils % (auto) 3.4 % (0.0-7.0); Hematocrit 24.2 % (41.0-53.0); Lymphocytes # (auto) 0.7 10 ^3/uL (0.4-5.4); Lymphocytes % (auto) 6.6 % (10.0-50.0); Mean Corpuscular Hemoglobin 30.2 pg (28.0-32.0); Mean Corpuscular Hgb Conc. 33.2 g/dL (32.0-36.0); Mean Corpuscular Volume 90.7 fL (80.0-100.0); Monocytes # (auto) 0.9 10 ^3/uL (0-1.3); Monocytes % (auto) 9.1 % (0.0-12.0); Neutrophils # (auto) 8.3 10 ^3/uL (1.6-8.6); Neutrophils % (auto) 80.6 % (37.0-80.0); Red Blood Cells 2.66 10^6/uL (4.5-5.90); Red Cell Distribution Width 16.4 % (11.8-14.3); White Blood Cell 10.3 10^3/uL (4.4-10.8)
[2021-06-08 08:26] LABS: Potassium 5.6 mmol/L (3.5-5.1)
[2021-06-08] MEDS: SODIUM ZIRCONIUM CYCL 10 GM PAK PO SCH (08:59)
[2021-06-08] MEDS: LISINOPRIL 20 MG TAB PO SCH (09:01)
[2021-06-08] MEDS: amLODIPine BESYLATE 5 MG TAB PO SCH (09:02)
[2021-06-08] MEDS: CARVEDILOL 12.5 MG TAB PO SCH ×2 (09:03→21:25)
[2021-06-08 09:56] VITALS: BP 158/62
[2021-06-08] MEDS: HYDROcodone-ACET 5/325MG TAB PO PRN ×2 (10:05→16:16)
[2021-06-08 12:35] VITALS: BP 139/52
[2021-06-08] MEDS ORDERED: VANCOMYCIN 500 MG in D5W 5% 100 ML IV ONE (16:00)
[2021-06-08 16:15] VITALS: BP 128/59
[2021-06-08] MEDS ORDERED: EPOETIN ALFA-EPBX 10,000 UNIT/1ML VIAL SC ONE (21:00)
[2021-06-08] MEDS: ATORVASTATIN 20 MG TAB PO SCH (21:22)
[2021-06-08 22:00] VITALS: BP 157/59
[2021-06-09 05:00] VITALS: BP 157/63
[2021-06-09] MEDS: HYDROcodone-ACET 5/325MG TAB PO PRN ×2 (06:33→15:20)
[2021-06-09] MEDS: CARVEDILOL 12.5 MG TAB PO SCH (08:50)
[2021-06-09] MEDS: amLODIPine BESYLATE 5 MG TAB PO SCH (08:51)
[2021-06-09] MEDS: SODIUM ZIRCONIUM CYCL 10 GM PAK PO SCH (08:51)
[2021-06-09] MEDS: LISINOPRIL 20 MG TAB PO SCH (08:51)
[2021-06-09 09:00] VITALS: BP 147/53
[2021-06-09 12:56] VITALS: BP 137/48
[2021-06-10] MEDS ORDERED: SODIUM CHL 0.9% 1000 ML BAG XX ONE (07:00)
[2021-06-10] MEDS ORDERED: EPOETIN ALFA-EPBX 10,000 UNIT/1ML VIAL SC ONE (21:00)
== END 2021-06-09 16:00 | disposition home or self-care (01) | DRG 602 ==
LOC: ER 14:25 → OVERFLOW 05-26 14:17 → WEST WING 05-27 16:34 → TELE-WESTW 05-28 02:40
PROVIDERS: ADMIT Internal Medicine; ATTEND Family Medicine
PROC: 5A1D70Z Performance of Urinary Filtration, Intermittent, Less than 6 Hours Per Day (ICD-10-PCS; 2021-05-27)
PROC: 5A1D70Z Performance of Urinary Filtration, Intermittent, Less than 6 Hours Per Day (ICD-10-PCS; 2021-05-29)
PROC: 5A1D70Z Performance of Urinary Filtration, Intermittent, Less than 6 Hours Per Day (ICD-10-PCS; 2021-06-02)
PROC: 30233N1 Transfusion of Nonautologous Red Blood Cells into Peripheral Vein, Percutaneous Approach (ICD-10-PCS; 2021-06-03)
PROC: 5A1D70Z Performance of Urinary Filtration, Intermittent, Less than 6 Hours Per Day (ICD-10-PCS; 2021-06-05)
PROC: 5A1D70Z Performance of Urinary Filtration, Intermittent, Less than 6 Hours Per Day (ICD-10-PCS; principal; 2021-06-08)
DX: L03.115 Cellulitis of right lower limb (principal); N18.6 End stage renal disease; U07.1 COVID-19; I50.43 Acute on chronic combined systolic (congestive) and diastolic (congestive) heart failure; J12.82 Pneumonia due to coronavirus disease 2019; M86.8X7 Other osteomyelitis, ankle and foot; E11.52 Type 2 diabetes mellitus with diabetic peripheral angiopathy with gangrene; I13.2 Hypertensive heart and chronic kidney disease with heart failure and with stage 5 chronic kidney disease, or end stage renal disease; E87.5 Hyperkalemia; D63.1 Anemia in chronic kidney disease; E11.69 Type 2 diabetes mellitus with other specified complication; K74.60 Unspecified cirrhosis of liver; E11.22 Type 2 diabetes mellitus with diabetic chronic kidney disease; E66.9 Obesity, unspecified; H54.8 Legal blindness, as defined in USA; I25.2 Old myocardial infarction; I25.5 Ischemic cardiomyopathy; Z99.2 Dependence on renal dialysis; Z79.82 Long term (current) use of aspirin; Z79.899 Other long term (current) drug therapy; Z82.49 Family history of ischemic heart disease and other diseases of the circulatory system; Z83.3 Family history of diabetes mellitus; Z89.511 Acquired absence of right leg below knee; Z90.49 Acquired absence of other specified parts of digestive tract; Z88.6 Allergy status to analgesic agent; Z91.018 Allergy to other foods
CPT/HCPCS: 36415; 36600; 71045; 73700; 74176; 80048; 80053; 80202; 82306; 82565; 82805; 82962; 83970; 84100; 84132; 84484; 85025; 85610; 85652; 85730; 86850; 86900; 86901; 86920; 87340; 87426; 90935; 93005; 93925; 94760; 96365; 96375; G0378; J0690; J1642; J1815; J2185; J2405; J2543; J7060